=== PATIENT | female | born 1990 | race Caucasian/White ===

== ENCOUNTER 2019-09-24 06:08 | Emergency (ER) | payer SELFPAY ==
[2019-09-24 06:19] VITALS: BP 138/88; PULSE 84; RESP 16; TEMP 36.7; O2SAT 100; BMI 25.2
[2019-09-24 06:25] VITALS: BP 138/88; PULSE 86; RESP 18; O2SAT 99
--- NOTE | 2019-09-24 06:41 | ED_ITS ---
HPI - SOB/Dyspnea General: Chief Complaint: Shortness of Breath/Dyspnea Stated Complaint: sob Time Seen by Provider: 09/24/19 06:39 Review of Systems General: Reports: 10 or more systems reviewed and unremarkable except in HPI and below Resp: Reports: shortness of breath and productive cough PFSH ED PFSH: Statuses (acute, chronic, etc) shown below reflect problem list status as previously entered and may not be historically accurate Social History Smoking and tobacco status: current every day smoker Physical Exam Const: COMMON NORMALS: no apparent distress, average body habitus, oriented x3, healthy appearing, alert and well nourished Neck/C-Spine: COMMON NORMALS: no JVD Resp: COMMON NORMALS: normal respiratory effort, no retractions, no use of accessory muscles and clear to auscultation bilaterally AUSCULTATION: clear to auscultation bilaterally Cardio: COMMON NORMALS: no JVD, regular rate and regular rhythm RATE: regular rate RHYTHM: regular rhythm Extremity: COMMON NORMALS: normal to inspection Neuro: COMMON NORMALS: oriented x3 SENSORIUM/ORIENTATION: Yes alert Course Vital Signs: Vital signs: Vital Signs Temperature 98.1 F 09/24/19 06:19 Pulse Rate 86 09/24/19 06:25 Respiratory Rate 18 09/24/19 06:25 Blood Pressure 138/88 09/24/19 06:25 Pulse Oximetry 99 09/24/19 06:25 MDM - SOB/Dyspnea Lab Data: Labs: Lab Results 09/24/19 09/24/19 09/24/19 Range/Units 06:54 06:55 06:55 WBC 10.0 (4.0-10.0) 10^3/ uL RBC 4.91 (4.1-5.3) 10^6/u L Hgb 14.2 (11.5-15.3) g/dL Hct 42.4 (37.0-47.0) % MCV 86.4 (81-99) fL MCH 28.9 (28.0-34.0) pg MCHC 33.5 (30.0-36.0) g/dL RDW 12.5 (12.1-15.1) % Plt Count 161 (130-400) 10^3/c mm MPV 11.5 H (7.4-10.4) fL Neut % (Auto) 49.4 % Lymph % (Auto) 36.0 % [place] % (Auto) 8.0 % Eos % (Auto) 5.7 % Baso % (Auto) 0.6 % Neut # (Auto) 4.9 (1.8-7.7) 10^3/u L Lymph # (Auto) 3.6 (0.8-4.8) 10^3/u L [place] # (Auto) 0.8 (0.2-0.9) 10^3/u L Eos # (Auto) 0.6 (0.0-0.8) 10^3/u L Baso # (Auto) 0.1 (0.0-0.1) 10^3/u L Nucleated RBC % (a uto) 0 % Nucleated RBCs # 0.0 /100WBC Sodium 137 (136-145) mmol/L Potassium 4.0 (3.5-5.1) mmol/L Chloride 103 (98-107) mmol/L Carbon Dioxide 22 (22-29) mmol/L Anion Gap 16.0 (5-19) BUN 8 (6-20) mg/dL Creatinine 0.7 (0.5-0.9) mg/dL GFR Calculation 99.6 (90-130) mL/min Glucose 109 (74-109) mg/dL Calcium 9.4 (8.5-10.5) mg/dL Total Bilirubin 0.2 (0.15-1.2) mg/dL AST 25 (0-32) U/L ALT 28 (0-33) U/L Alkaline Phosphata se 61 (35-105) IU/L Total Protein 7.1 (6.6-8.7) g/dL Albumin 3.9 (3.5-5.2) g/dL Globulin 3.2 (1.3-4.6) g/dL Influenza Type A A g Negative (Negative) POC Influenza B Ag Negative (Negative) Imaging Data^: CXR: My impression: nad Coding Level of Care Code ED [employer] for [facility] Divya
--- NOTE | 2019-09-24 06:44 | XR_ITS ---
WS: [id number] Portable AP upright chest, 09/24/2019 Clinical Data: dyspnea/cough Comparison: PA and lateral chest, 03/29/2016. Findings: No nodules, masses or effusions are seen. The heart is normal. The pulmonary vascularity is not increased. No pneumonia or pneumothorax is seen. XR/XR chest 1V portable [id number] Impression: Negative chest.
[2019-09-24 06:59] LABS: Basophils # 0.1 10^3/uL (0.0-0.1); Basophils % 0.6 %; Eosinophils # 0.6 10^3/uL (0.0-0.8); Eosinophils % 5.7 %; Hematocrit 42.4 % (37.0-47.0); Hemoglobin 14.2 g/dL (11.5-15.3); Lymphocytes # 3.6 10^3/uL (0.8-4.8); Mean Corpuscular HGB Conc 33.5 g/dL (30.0-36.0); Mean Corpuscular Hemoglobin 28.9 pg (28.0-34.0); Mean Corpuscular Volume 86.4 fL (81-99); Mean Platelet Volume 11.5 fL (7.4-10.4); Monocytes # 0.8 10^3/uL (0.2-0.9); Neutrophils # 4.9 10^3/uL (1.8-7.7); Neutrophils % 49.4 %; Nucleated Red Blood Cells % 0 %; Platelet Count 161 10^3/cmm (130-400); Red Blood Count 4.91 10^6/uL (4.1-5.3); Red Cell Distribution Width 12.5 % (12.1-15.1)
[2019-09-24 07:16] LABS: Alanine Aminotransferase 28 U/L (0-33); Albumin Level 3.9 g/dL (3.5-5.2); Alkaline Phosphatase 61 IU/L (35-105); Aspartate Amino Transferase 25 U/L (0-32); Blood Urea Nitrogen 8 mg/dL (6-20); Calcium 9.4 mg/dL (8.5-10.5); Carbon Dioxide 22 mmol/L (22-29); Chloride 103 mmol/L (98-107); Globulin 3.2 g/dL (1.3-4.6); Glomerular Filtration Rate 99.6 mL/min (90-130); Glucose 109 mg/dL (74-109); Sodium 137 mmol/L (136-145); Total Bilirubin 0.2 mg/dL (0.15-1.2); Total Protein 7.1 g/dL (6.6-8.7)
[2019-09-24 07:19] LABS: Influenza A by IFA Negative (Negative); Influenza B by IFA Negative (Negative)
[2019-09-24] MEDS: sodium chloride 0.9% 1,000 ML 999 ML IV (07:36)
[2019-09-24 08:50] VITALS: BP 122/59; PULSE 75; RESP 20; O2SAT 99
== END 2019-09-24 08:53 | disposition home or self-care (01) ==
PROVIDERS: Emergency Provider Family Medicine; PCP Obstetrics & Gynecology
DX: R06.02 Shortness of breath (principal); F17.210 Nicotine dependence, cigarettes, uncomplicated
CPT/HCPCS: 71045; 80053; 85025; 87804; 96360; 99283; J7030

== ENCOUNTER 2019-11-16 22:26 | Emergency (ER) | payer SELFPAY ==
[2019-11-16 22:30] VITALS: BP 169/116; PULSE 103; RESP 18; TEMP 36.9; O2SAT 98; BMI 25.7
--- NOTE | 2019-11-16 22:36 | ED_ITS ---
Entered by Jane Gonsales, acting as scribe for Fabio Luther MD Nov 16, 2019 22:26 HPI - General Adult General: Chief complaint: General Medical Stated complaint: l breast leakage, blood, swelling, and pain Time Seen by Provider: 11/16/19 22:35 Source: patient Mode of arrival: ambulatory Limitations: no limitations History of Present Illness: HPI narrative: 29 yr old f came into the ED today. This started 2 weeks ago according to the pt. Pt says that she had discharge coming out of the left nipple once she squeezed the nipple there was yellow discharge coming out of the nipple, swelling. Last period was about 1 month ago. Pt states that she is unable to get by tubal ligation. Pt states she does not have a primary care physician. Onset (ago): week(s) (2 weeks of ongoing symptoms) Location: left (breast ) Severity: moderate Pain Consistency: constant Associated symptoms: Reports no associated symptoms; Deny chest pain, dyspnea, headache(s), nausea or vomiting Treatments prior to arrival: none Review of Systems Const: Denies: fever, chills, body aches or change in appetite Eyes: Denies: blurry vision or eye discomfort ENMT: Denies: throat pain or dental pain Card: Denies: chest pain Resp: Denies: shortness of breath GI: Denies: abdominal pain, nausea, vomiting or diarrhea : Denies: painful urination Musc: Denies: neck pain or back pain Skin/Breast: Reports: redness (mild redness with a small streak ), breast tenderness, breast pain, breast swelling and nipple discharge (yellow/ green discharge ) Neuro: Denies: headache Psych: Denies: depression Adam/Lymph: Denies: easy bruising All/Imm: Denies: hives PFSH ED PFSH: Social History Smoking and tobacco status: current every day smoker Physical Exam Const: COMMON NORMALS: no apparent distress, oriented x3 and healthy appearing HENMT: COMMON NORMALS: normocephalic and head/scalp atraumatic HEAD & SCALP: normocephalic and atraumatic Eye: COMMON NORMALS: PERRL and EOMs intact bilaterally PUPIL: Yes PERRL Neck/C-Spine: COMMON NORMALS: full ROM and supple Chest: COMMONS NORMALS: inspection of chest normal and palpation of chest normal OTHER: Slight erythema to left breast at this time. No abscess or mass palpated. Resp: COMMON NORMALS: normal respiratory effort, no retractions, no use of accessory muscles and clear to auscultation bilaterally AUSCULTATION: clear to auscultation bilaterally Cardio: COMMON NORMALS: regular rate, regular rhythm and no murmurs RATE: regular rate RHYTHM: regular rhythm GI: COMMON NORMALS: normal to inspection, nondistended, normoactive bowel sounds, soft to palpation, non-tender and no masses PALPATION: Yes soft Extremity: COMMON NORMALS: normal to inspection and full ROM Neuro: COMMON NORMALS: oriented x3, moves all extremities and no focal motor deficits Psych: COMMON NORMALS: mental status grossly normal, thought process normal and cooperative THOUGHT PROCESS: normal thought process Skin: COMMON NORMALS: no rashes or lesions noted and no wounds GENERAL SKIN EXAM: no rashes or lesions noted Course Vital Signs: Vital signs: Vital Signs Temperature 98.4 F 11/16/19 22:30 Pulse Rate 103 H 11/16/19 22:30 Respiratory Rate 18 11/16/19 22:30 Blood Pressure 169/116 11/16/19 22:30 Pulse Oximetry 98 11/16/19 22:30 MDM - General Adult MDM Narrative: Medical decision making narrative: Patient presents here with breast pain and nipple discharge. Patient is well-appearing here and has no signs of abscess. Patient may have a mild mastitis and will start on dicloxacillin along with pain meds. Patient is to follow-up with OB as well for close follow-up of her breast pain. Discharge Plan Discharge Patient Disposition: Home, Self-Care Condition: Stable Prescriptions: [place] 5-325 mg tablet 1 tab PO Q6H PRN (Reason: pain) Qty: 14 RF: 0 dicloxacillin 500 mg capsule 500 mg PO QID Qty: 28 RF: 0 No Action albuterol sulfate 90 mcg/actuation aero powdr breath act w/sensor 2 inh INHALATION Q4H PRN (Reason: shortness of breath or wheezing) Qty: 1 RF: 0 Zithromax Z-Isiah 250 mg tablet See Rx Instructions .ROUTE .COMPLEX Qty: 6 RF: 0 prednisone 10 mg tablets,dose pack See Rx Instructions .ROUTE .COMPLEX Qty: 21 RF: 0 Discharge Orders: Discharge Order (Routine); Ordered 11/16/19 Ordered By: Fabio Luther Discharge Diet: Advance as tolerated Discharge Activity: Resume usual activity Patient Instructions: Breast Pain Discharge Date/Time: 11/16/19 22:53 Coding Level of Care Code ED Serger for Chg Fwd The documentation recorded by the Dru carr Stephanie Lyn, accurately reflects the service I personally performed and the decisions made by Homa davis Korby, MD Nov 16, 2019 22:26
--- NOTE | 2019-11-16 22:46 | PC.NURSE ---
Patient had hardened area in left breast for two weeks with pain. Patient squeezed breast at home hoping to relieve pain, yellow discharge and blood from nipple emerged, and pain worsened. No visual signs of abscess or infection to area. Some swelling present and pain 10/10.
[2019-11-16] MEDS: HYDROcodone-acetaminophen 7.5-325 mg Tablet 1 TAB PO (22:52)
--- NOTE | 2019-11-18 10:06 | DCPLANNER ---
bakery manager had message to schedule a follow up appointment for patient with [facility]. bakery manager called [facility], spoke with Laura. bakery manager gave clinic patients information. bakery manager was told that patients information would be printed and reviewed, clinic will call child welfare caseworker with appointment information.
--- NOTE | 2019-12-02 11:29 | DCPLANNER ---
retail office manager called [facility] to confirm if a follow up appointment had been scheduled for patient. retail office manager spoke with Daniela, was told that clinic spoke with patient, and that patient did not want to set up an appointment at this time, due to not having insurance and did not want to have an appointment that she could not afford at this time. retail office manager was told that patient was offered the financial compliance officer for the hospital to fill out and turn back in, patient did come into clinic, and took the applications. Clinic is waiting for patient to turn in the financial compliance officer applications and see if she is approved for financial compliance officer, and if so to schedule an appointment.
== END 2019-11-16 22:53 | disposition home or self-care (01) ==
PROVIDERS: Emergency Provider Emergency Medicine
DX: N64.4 Mastodynia (principal); N64.52 Nipple discharge; F17.200 Nicotine dependence, unspecified, uncomplicated
CPT/HCPCS: 12345; 99281; 99283

== ENCOUNTER 2020-10-16 21:07 | Emergency (ER) | payer OTHER, SELFPAY ==
[2020-10-16 21:13] VITALS: BP 147/95; PULSE 103; RESP 22; TEMP 36.6; O2SAT 97; BMI 32.9
--- NOTE | 2020-10-16 21:19 | XR_ITS ---
WS: [id number] Exam: XR elbow LT min 3V* [id number] Date/Time of Exam: 10/16/2020 9:19 PM Reason For Exam: elbow pain, s/p fall No fracture or dislocation. No joint effusion. Unremarkable soft tissues. XR/XR elbow LT min 3V* [id number] IMPRESSION: 1. Negative left elbow.
--- NOTE | 2020-10-16 21:19 | XR_ITS ---
WS: [id number] Exam: XR wrist LT min 3V* [id number] Date/Time of Exam: 10/16/2020 9:19 PM Reason For Exam: fall, FOOSH injury There are no fractures, soft tissue swelling, or unusual calcifications. The wrist shows normal bony alignment. There is no irregularity of the bony architecture. XR/XR wrist LT min 3V* [id number] IMPRESSION: Negative left wrist.
--- NOTE | 2020-10-16 21:20 | ED_ITS ---
HPI - Extremity Problem General: Chief complaint: Extremity Injury, Upper Stated complaint: fall/left arm injury Time Seen by Provider: 10/16/20 21:19 Source: patient Mode of arrival: ambulatory Limitations: no limitations History of Present Illness: HPI Narrative: 30-year-old female patient presents to the emergency department with onset of left upper extremity pain status post fall. She reports slipped wet ground while getting out of her vehicle. She reports attempted to block her fall with her left arm extended. She is complaining of left wrist pain and left elbow pain. She has not had anything for pain. She denies other injuries. She is ambulatory. MD Complaint: extremity pain and extremity swelling Onset (ago): minute(s) (30) Pain Consistency: constant Location: left and upper extremity Quality: aching and dull Radiation: proximal and distal Relieving factors: rest Exacerbating factors: range of motion Associated symptoms: Reports no associated symptoms; Deny chest pain, fever(s) or rash Review of Systems General: Reports: 10 or more systems reviewed and unremarkable except in HPI and below Const: Denies: fever(s), chills or diaphoresis Eyes: Denies: blurry vision or eye redness ENMT: Denies: throat pain, dental pain or disequilibrium Card: Denies: chest pain, palpitations, irregular heart rhythm, lightheadedness or dyspnea on exertion Resp: Denies: dyspnea, productive cough, non-productive cough or wheezing GI: Denies: abdominal pain, nausea or vomiting : Denies: flank pain, difficulty voiding or dysuria Musc: Reports: joint pain and joint stiffness; Denies: neck pain or back pain Skin/Breast: Denies: rash or pruritus Neuro: Denies: headache(s), weakness in extremities or behavioral changes Psych: Denies: anxiety or depression Adam/Lymph: Denies: easy bruising PFSH ED PFSH: Social History Smoking and tobacco status: current every day smoker Female Reproductive History: Date of last menstrual period: 10/02/20 Physical Exam Const: COMMON NORMALS: no acute distress, patient oriented x3, healthy appearing, alert and well nourished EXAM LIMITATIONS: no altered mental status GENERAL APPEARANCE: cooperative, well kempt, well developed and well hydrated; not in distress and not anxious NUTRITIONAL APPEARANCE: obese ORIENTATION/CONSCIOUSNESS: Yes awake, Yes oriented to person, Yes oriented to place and Yes oriented to time HENMT: COMMON NORMALS: normocephalic, atraumatic, external ears normal, Normal external nose present, Normal nasal mucous membranes and turbinates present and moist oral mucous membranes HEAD & SCALP: normal to inspection, normocephalic and atraumatic FACE & SINUS: normal facial exam and face symmetric NOSE: Normal external nose present and Normal nasal mucous membranes and turbinates present EXTERNAL EAR: Yes external ears normal Eye: COMMON NORMALS: Equal, round and reactive pupils present and EOMs intact bilaterally GENERAL EYE: appearance normal, both eyes and all related structures PUPIL: Yes Equal, round and reactive pupils present Neck/C-Spine: COMMON NORMALS: full ROM and no lymphadenopathy GENERAL: Yes normal visual inspection and Yes trachea midline CERVICAL SPINE: Yes cervical ROM normal Lymph: LYMPHATIC: no lymphadenopathy noted Chest: COMMONS NORMALS: normal inspection of the chest Resp: COMMON NORMALS: normal respiratory effort and clear to auscultation bilaterally AUSCULTATION: clear to auscultation bilaterally Cardio: COMMON NORMALS: regular rhythm, S1 normal heart sound present and S2 normal heart sound present RHYTHM: regular rhythm HEART SOUNDS: S1 normal heart sound present and S2 normal heart sound present GI: COMMON NORMALS: Soft to palpation and non-tender INSPECTION: Yes normal to inspection PALPATION: Yes Soft to palpation : COMMON NORMALS: Yes no CVA tenderness BLADDER/KIDNEY EXAM: Yes no CVA tenderness Back/Pelvis: COMMON NORMALS: no CVA tenderness and thoracic and lumbar spine normal to inspection Extremity: COMMON NORMALS: normal to inspection, capillary refill normal, no clubbing, cyanosis or edema and no pedal edema GENERAL: Yes normal exam except as noted LEFT UPPER EXTREMITY: Yes shoulder joint Left shoulder joint: Yes inspection (normal), Yes palpation (normal) and Yes ROM (full), Yes elbow joint Left elbow: Yes inspection (normal), Yes palpation (pain lateral), Yes ROM (full pronation/supination appreciated) and Yes neurovascular exam (distally intact) and Yes wrist Left wrist: Yes inspection (normal), Yes palpation (pain ulnar side, pain directly on ulnar styloid) and Yes neurovascular exam (distally intact) Neuro: YUE COMA SCALE: document GCS findings [place] coma scale eye opening: Spontaneous Yue coma scale verbal response: Orientated Yue coma scale motor response: Obey commands [place] coma scale total score: 15 COMMON NORMALS: patient oriented x3 and no focal motor deficits SENSORIUM/ORIENTATION: Yes alert, Yes oriented to person, Yes oriented to place and Yes oriented to time SPEECH: speech normal GAIT: Yes Normal gait present MOTOR EXAM: 5/5 motor strength present throughout Psych: COMMON NORMALS: mental status grossly normal, Normal thought process present and cooperative APPEARANCE: Yes well kempt ACTIVITY/MOTOR BEHAVIOR: Yes appropriate eye contact THOUGHT PROCESS: Normal thought process present Skin: COMMON NORMALS: no rashes or lesions noted and turgor normal GENERAL SKIN EXAM: no rashes or lesions noted and turgor normal Course Vital Signs: Vital signs: Vital Signs Temperature 97.9 F 10/16/20 21:13 Pulse Rate 92 10/16/20 22:33 Respiratory Rate 18 10/16/20 22:32 Blood Pressure 142/87 10/16/20 22:33 Pulse Oximetry 98 10/16/20 22:33 MDM - Extremity (Nontraumatic) Imaging Data^: Other Xray: My impression: Negative acute findings of left wrist and left elbow x-ray series, radiology interpretation pending. Discharge Plan Discharge Patient Disposition: Home Clinical Impression: Sprain and strain of wrist Fall Qualifiers: Encounter type: initial encounter Qualified Code(s): W19.XXXA - Unspecified fall, initial encounter Arm pain Qualifiers: Laterality: left Qualified Code(s): M79.602 - Pain in left arm Condition: Stable Prescriptions: New IBU 600 mg tablet 600 mg PO TID PRN (Reason: pain) Qty: 20 RF: 0 No Action albuterol sulfate 90 mcg/actuation aero powdr breath act w/sensor 2 inh INHALATION Q4H PRN (Reason: shortness of breath or wheezing) Qty: 1 RF: 0 Zithromax Z-Isiah 250 mg tablet See Rx Instructions .ROUTE .COMPLEX Qty: 6 RF: 0 prednisone 10 mg tablets,dose pack See Rx Instructions .ROUTE .COMPLEX Qty: 21 RF: 0 [place] 5-325 mg tablet 1 tab PO Q6H PRN (Reason: pain) Qty: 14 RF: 0 dicloxacillin 500 mg capsule 500 mg PO QID Qty: 28 RF: 0 Discharge Orders: Discharge ED (Routine); Ordered 10/16/20 Ordered By: Steff Alba Discharge Diet: Usual diet Discharge Activity: Limit activity as instructed Patient Instructions: How to Use a Sling (GEN), Splint Care (ED), Opioid Safety, Sprains - Wrist Activity Restrictions/Additional Instructions: Follow-up with your primary provider in 4 to 5 days if not improved Velcro wrist splint has been provided, use as needed for pain Return to the emergency department if you develop concerning symptoms Prescription of ibuprofen has been provided, do not use [id number] ib uprofen, Advil, Aleve as duplication of therapy can occur Coding Level of Care Code ED Tube Trailer Filler for Radha Fwd Exam Comprehensive
[2020-10-16] MEDS: acetaminophen 500 mg Tablet 1000 MG PO (21:24)
[2020-10-16] MEDS: ibuprofen 600 mg Tablet PO (22:30)
[2020-10-16 22:31] VITALS: BP 142/87; PULSE 98; O2SAT 98
[2020-10-16 22:32] VITALS: BP 124/85; PULSE 89; RESP 18; O2SAT 98
[2020-10-16 22:33] VITALS: BP 142/87; PULSE 92; O2SAT 98
== END 2020-10-16 22:34 | disposition home or self-care (01) ==
PROVIDERS: Emergency Provider Nurse Practitioner Family
DX: S63.502A Unspecified sprain of left wrist, initial encounter (principal); S66.912A Strain of unspecified muscle, fascia and tendon at wrist and hand level, left hand, initial encounter; F17.210 Nicotine dependence, cigarettes, uncomplicated; W01.0XXA Fall on same level from slipping, tripping and stumbling without subsequent striking against object, initial encounter
CPT/HCPCS: 29125; 73080; 73110; 99283

== ENCOUNTER 2021-04-13 18:10 | Emergency (ER) | payer OTHER, SELFPAY ==
[2021-04-13 18:36] VITALS: BP 151/92; PULSE 93; RESP 18; TEMP 36.9; O2SAT 98
--- NOTE | 2021-04-13 19:17 | USCV_ITS ---
Tyra Patel Age: 30 Gender: F : 1990 Exam Date: 04/13/2021 19:51 Ordering Phys: Ramy Escudero Technologist: Cem Gabriel Exam Location: [facility] [place]_ Indication: RT LEG PAIN AND SWELLING PROCEDURES: Venous duplex imaging was performed in only the right lower extremity. The following venous structures were evaluated: common femoral vein, profunda vein, proximal portion of the greater saphenous vein, superficial femoral vein, and the popliteal vein. In addition, the posterior tibial and peroneal trunk were evaluated. FINDINGS: Normal 2-D Doppler and augmentation and compressibility throughout the lower extremity venous structures. Additional imaging through the proximal calf veins also reveals no thrombus. Limited evaluation of the greater saphenous vein is patent with no thrombus.. CONCLUSIONS No evidence of DVT in the above-mentioned identifiable veins. Dr Elias Abbasi MD LOCATED WITHIN [facility] (Electronically Signed) Final Date: 14 April 2021 18:40 S
--- NOTE | 2021-04-13 19:26 | ED_ITS ---
HPI - Extremity Problem General: Chief complaint: Extremity Problem,Nontraumatic Stated complaint: right leg pain and swelling Time Seen by Provider: 04/13/21 19:25 History of Present Illness: HPI Narrative: 30-year-old female comes in with some swelling and tenderness to the right lower extremity. Patient denies any recent , surgery, injury, or long sitting periods. Patient denies any previous history of blood clots. Patient does report her mother has a history of blood clots. Patient appears well. Patient appears no acute distress. Patient does smoke cigarette tobacco but denies any control. Review of Systems General: Reports: 10 or more systems reviewed and unremarkable except in HPI and below Musc: Reports: other (Right calf pain) PFS ED PFSH: Social History Smoking and tobacco status: current every day smoker Female Reproductive History: Date of last menstrual period: 10/02/20 Physical Exam Const: COMMON NORMALS: no acute distress and patient oriented x3 GENERAL APPEARANCE: cooperative HENMT: COMMON NORMALS: normocephalic and Normal external nose present HEAD & SCALP: normal to inspection and normocephalic NOSE: Normal external nose present MOUTH: Normal oral and palatal mucosa present Eye: GENERAL EYE: appearance normal, both eyes and all related structures Neck/C-Spine: COMMON NORMALS: full ROM Lymph: LYMPHATIC: no lymphadenopathy noted Chest: COMMONS NORMALS: normal inspection of the chest Resp: COMMON NORMALS: normal respiratory effort EFFORT & INSPECTION: Yes able to speak in complete sentences Cardio: COMMON NORMALS: regular rate and regular rhythm RATE: regular rate RHYTHM: regular rhythm GI: COMMON NORMALS: non-tender Back/Pelvis: COMMON NORMALS: thoracic and lumbar spine normal to inspection Extremity: NARRATIVE EXTREMITY EXAM: Mild calf tenderness on the right lower extremity, pulses are intact bilaterally to lower extremities, minimal to no swelling is noted to the right calf. Neuro: COMMON NORMALS: patient oriented x3 and moves all extremities Psych: COMMON NORMALS: mental status grossly normal and cooperative Skin: COMMON NORMALS: no rashes or lesions noted GENERAL SKIN EXAM: no rashes or lesions noted Course Vital Signs: Vital signs: Vital Signs Temperature 98.4 F 04/13/21 18:36 Pulse Rate 93 04/13/21 18:36 Respiratory Rate 18 04/13/21 18:36 Blood Pressure 151/92 04/13/21 18:36 Pulse Oximetry 98 04/13/21 19:41 MDM - Extremity (Nontraumatic) MDM Narrative: Medical decision making narrative: 30-year-old female comes in today with complaints of right lower calf pain. On exam patient has some tenderness in the right lower calf on palpation. Minimal to no swelling is noted. Pulses are intact distally. Palpation of the lumbar spine indicates no pain or tenderness. No tenderness is noted in the right buttocks. Patient has negative leg lift test. Differential diagnosis includes but not limited to DVT, muscle strain, sciatica. Ultrasound of the extremity was negative for DVT. CBC and CMP noted some elevation in hemoglobin hematocrit but otherwise normal. hCG serum test was negative. Reviewed exam with patient recommended treatment for musculoskeletal pain. Recommend follow-up with primary care for persistent pain and further evaluation. Lab Data: Labs: Lab Results 04/13/21 04/13/21 04/13/21 Range/Units 19:40 19:40 19:40 WBC 13.8 H (4.0-10.0) 10^3/ uL RBC 5.60 H (4.1-5.3) 10^6/u L Hgb 16.1 H (11.5-15.3) g/dL Hct 47.8 H (37.0-47.0) % MCV 85.4 (81-99) fl MCH 28.8 (28.0-34.0) pg MCHC 33.7 (30.0-36.0) g/dL RDW 12.9 (12.1-15.1) % Plt Count 200 (130-400) 10^3/c mm MPV 12.0 H (7.4-10.4) fL Neut % (Auto) 64.8 % Lymph % (Auto) 23.7 % [place] % (Auto) 8.2 % Eos % (Auto) 2.3 % Baso % (Auto) 0.7 % Neut # (Auto) 8.96 H (1.8-7.7) 10^3/u L Lymph # (Auto) 3.3 (0.8-4.8) 10^3/u L [place] # (Auto) 1.1 H (0.2-0.9) 10^3/u L Eos # (Auto) 0.3 (0.0-0.8) 10^3/u L Baso # (Auto) 0.1 (0.0-0.1) 10^3/u L Nucleated RBC % (a uto) 0 % Nucleated RBCs # 0.0 /100WBC Sodium 134 L (136-145) mmol/L Potassium 4.2 (3.5-5.1) mmol/L Chloride 100 (98-107) mmol/L Carbon Dioxide 24 (22-29) mmol/L Anion Gap 14.2 (5-19) BUN 12 (6-20) mg/dL Creatinine 0.5 (0.5-0.9) mg/dL GFR Calculation 145.9 H (90-130) mL/min Glucose 81 (65-115) mg/dL Calculated Osmolal ity 277 L (285-295) mOsm/k g Calcium 9.8 (8.5-10.5) mg/dL Total Bilirubin 0.2 (0.15-1.2) mg/dL AST 23 (0-32) U/L ALT 25 (0-33) U/L Alkaline Phosphata se 82 (35-105) IU/L Total Protein 7.3 (6.6-8.7) g/dL Albumin 4.4 (3.5-5.2) g/dL Globulin 2.9 (1.3-4.6) g/dL HCG, Qual Negative (Negative) Discharge Plan Discharge Patient Disposition: Home Clinical Impression: Acute pain of right lower extremity Condition: Stable Prescriptions: No Action albuterol sulfate 90 mcg/actuation aero powdr breath act w/sensor 2 inh INHALATION Q4H PRN (Reason: shortness of breath or wheezing) Qty: 1 RF: 0 Zithromax Z-Isiah 250 mg tablet See Rx Instructions .ROUTE .COMPLEX Qty: 6 RF: 0 prednisone 10 mg tablets,dose pack See Rx Instructions .ROUTE .COMPLEX Qty: 21 RF: 0 [place] 5-325 mg tablet 1 tab PO Q6H PRN (Reason: pain) Qty: 14 RF: 0 dicloxacillin 500 mg capsule 500 mg PO QID Qty: 28 RF: 0 IBU 600 mg tablet 600 mg PO TID PRN (Reason: pain) Qty: 20 RF: 0 Discharge Orders: Discharge ED (Routine); Ordered 04/13/21 Ordered By: Ramy Escudero Discharge Diet: Usual diet Discharge Activity: Increase activity as tolerated Patient Instructions: Musculoskeletal Pain (ED), Opioid Safety Activity Restrictions/Additional Instructions: Home and rest. Drink plenty of fluids. Activity as tolerated. Gentle stretching and range of motion exercises. Use Tylenol or ibuprofen for pain. Follow-up with primary care for further instructions and recommendations for further treatment and evaluation. Return to the ER for new concerns. Coding Level of Care Code ED Board Certified Orthodontist for Radha Fwd Exam Comprehensive
[2021-04-13 19:41] VITALS: O2SAT 98
[2021-04-13 19:49] LABS: Basophils # 0.1 10^3/uL (0.0-0.1); Basophils % 0.7 %; Eosinophils # 0.3 10^3/uL (0.0-0.8); Eosinophils % 2.3 %; Hematocrit 47.8 % (37.0-47.0); Hemoglobin 16.1 g/dL (11.5-15.3); Lymphocytes # 3.3 10^3/uL (0.8-4.8); Lymphocytes % 23.7 %; Mean Corpuscular HGB Conc 33.7 g/dL (30.0-36.0); Mean Corpuscular Hemoglobin 28.8 pg (28.0-34.0); Mean Corpuscular Volume 85.4 fl (81-99); Monocytes # 1.1 10^3/uL (0.2-0.9); Monocytes % 8.2 %; Neutrophils # 8.96 10^3/uL (1.8-7.7); Neutrophils % 64.8 %; Nucleated Red Blood Cells % 0 %; Platelet Count 200 10^3/cmm (130-400); Red Cell Distribution Width 12.9 % (12.1-15.1); White Blood Count 13.8 10^3/uL (4.0-10.0)
[2021-04-13 20:16] LABS: HCG, Serum Qual Negative (Negative)
[2021-04-13 20:30] LABS: Alanine Aminotransferase 25 U/L (0-33); Albumin Level 4.4 g/dL (3.5-5.2); Alkaline Phosphatase 82 IU/L (35-105); Anion Gap 14.2 (5-19); Aspartate Amino Transferase 23 U/L (0-32); Blood Urea Nitrogen 12 mg/dL (6-20); Calcium 9.8 mg/dL (8.5-10.5); Carbon Dioxide 24 mmol/L (22-29); Chloride 100 mmol/L (98-107); Globulin 2.9 g/dL (1.3-4.6); Glomerular Filtration Rate 145.9 mL/min (90-130); Glucose 81 mg/dL (65-115); Osmolality Calculated 277 mOsm/kg (285-295); Potassium 4.2 mmol/L (3.5-5.1); Sodium 134 mmol/L (136-145); Total Bilirubin 0.2 mg/dL (0.15-1.2); Total Protein 7.3 g/dL (6.6-8.7)
[2021-04-13 20:46] VITALS: BP 138/96; PULSE 80; RESP 16; O2SAT 98
== END 2021-04-13 20:46 | disposition home or self-care (01) ==
PROVIDERS: Emergency Provider Nurse Practitioner Family
DX: M79.604 Pain in right leg (principal); F17.210 Nicotine dependence, cigarettes, uncomplicated
CPT/HCPCS: 80053; 84703; 85025; 93971; 99282

== ENCOUNTER 2022-03-29 00:59 | Emergency (ER) | payer OTHER, SELFPAY ==
[2022-03-29 01:05] VITALS: BP 137/88; PULSE 93; RESP 23; TEMP 36.9; O2SAT 98; BMI 33.6
--- NOTE | 2022-03-29 01:30 | ECG_ITS ---
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 Measurements Intervals [place] Rate: 91 P: 68 AR: 117 QRS: 84 QRSD: 90 T: 46 QT: 327 QTc: 403 Interpretive Statements SINUS RHYTHM WITH SHORT AR INTERVAL Compared to ECG 03/29/2016 19:02:18 No significant changes Electronically Signed On 03-29-2022 14:22:46 CDT by Levon Clemons M.D. [email or web address] Communicationscleveland clinic foundationOptizen labs/store/NU/[id number] f
--- NOTE | 2022-03-29 01:30 | XRR_ITS ---
PROCEDURE INFORMATION: Exam: XR Chest Exam date and time: 03/29/2022 2:15 AM Age: 31 years old Clinical indication: Shortness of breath; Patient HX: C/O SOB. TECHNIQUE: Imaging protocol: Radiologic exam of the chest. Views: 1 view. COMPARISON: CR XR chest 1V portable [id number] 09/24/2019 6:51 AM FINDINGS: Lungs: No consolidation. Pleural spaces: Unremarkable. No pleural effusion. No pneumothorax. Heart/Mediastinum: No cardiomegaly. Bones/joints: No acute fracture. XR/XR chest 1V portable [id number] IMPRESSION: No acute findings.
--- NOTE | 2022-03-29 01:43 | PC.NURSE ---
BLOOD DRAWN VIA FLAT FOLDING MACHINE OPERATOR FROM RIGHT HAND PER PROTOCOL, TOLERATED WELL. LABS LABELED AND TAKEN TO LAB DEPT AT THIS TIME.
[2022-03-29 01:49] LABS: Basophils # 0.1 10^3/uL (0.0-0.1); Basophils % 0.5 %; Eosinophils # 0.5 10^3/uL (0.0-0.8); Eosinophils % 4.2 %; Hemoglobin 16.2 g/dL (11.5-15.3); Lymphocytes # 4.1 10^3/uL (0.8-4.8); Lymphocytes % 34.4 %; Mean Corpuscular HGB Conc 33.8 g/dL (30.0-36.0); Mean Corpuscular Hemoglobin 28.5 pg (28.0-34.0); Mean Corpuscular Volume 84.5 fl (81-99); Mean Platelet Volume 12.3 fL (7.4-10.4); Monocytes # 0.9 10^3/uL (0.2-0.9); Monocytes % 7.4 %; Neutrophils # 6.27 10^3/uL (1.8-7.7); Neutrophils % 53.2 %; Nucleated Red Blood Cells % 0 %; Platelet Count 198 10^3/cmm (130-400); Red Blood Count 5.68 10^6/uL (4.1-5.3); Red Cell Distribution Width 12.6 % (12.1-15.1); White Blood Count 11.8 10^3/uL (4.0-10.0)
[2022-03-29 02:19] LABS: Troponin(5th) Baseline 6 ng/L (0-10)
--- NOTE | 2022-03-29 02:24 | W.ED.SOB ---
HPI - SOB/Dyspnea General: Chief Complaint: Shortness of Breath/Dyspnea Stated Complaint: sob, body aches Time Seen by Provider: 03/29/22 01:30 Source: patient Mode of arrival: ambulatory Limitations: no limitations History of Present Illness: HPI Narrative: 31-year-old female who states that over the last 2 days she been having some shortness of breath along with body aches and vomiting. States the vomiting is improved but she still having body aches and dyspnea. She denies any fever denies any cough she has not had any known sick contacts but is concerned she may have COVID but denies fever patient is in no distress here pulse ox 98% on room air she able speak in full senses denies any chest pain. Associated symptoms: Deny abdominal pain, chest pain, nausea or vomiting Review of Systems Const: Reports: body aches Eyes: Denies: blurry vision or eye discomfort ENMT: Denies: throat pain or dental pain Card: Denies: chest pain Resp: Reports: dyspnea GI: Denies: abdominal pain, nausea, vomiting or diarrhea : Denies: dysuria Musc: Denies: neck pain or back pain Skin/Breast: Denies: rash Neuro: Denies: headache(s) Psych: Denies: depression Adam/Lymph: Denies: easy bruising All/Imm: Denies: urticaria PFSH ED PFSH: Medical History (Updated 03/29/22 @ 03:02 by Fabio Luther MD) No pertinent past medical history Social History Smoking and tobacco status: current every day smoker Female Reproductive History: Date of last menstrual period: 10/02/20 Physical Exam Const: COMMON NORMALS: no acute distress, patient oriented x3 and healthy appearing HENMT: COMMON NORMALS: normocephalic and atraumatic HEAD & SCALP: normocephalic and atraumatic Eye: COMMON NORMALS: Equal, round and reactive pupils present and EOMs intact bilaterally PUPIL: Yes Equal, round and reactive pupils present Neck/C-Spine: COMMON NORMALS: full ROM and supple Chest: COMMONS NORMALS: normal inspection of the chest and normal palpation of entire chest wall Resp: COMMON NORMALS: normal respiratory effort, No retractions, No use of accessory muscles and clear to auscultation bilaterally AUSCULTATION: clear to auscultation bilaterally Cardio: COMMON NORMALS: regular rate, regular rhythm and No murmurs present (Cardio) RATE: regular rate RHYTHM: regular rhythm GI: COMMON NORMALS: Normal to inspection, nondistended, normoactive bowel sounds present, Soft to palpation, non-tender and no masses PALPATION: Yes Soft to palpation Extremity: COMMON NORMALS: normal to inspection and full ROM Neuro: COMMON NORMALS: patient oriented x3, moves all extremities and no focal motor deficits Psych: COMMON NORMALS: mental status grossly normal, Normal thought process present and cooperative THOUGHT PROCESS: Normal thought process present Skin: COMMON NORMALS: no rashes or lesions noted and no wounds GENERAL SKIN EXAM: no rashes or lesions noted Course Vital Signs: Vital signs: Vital Signs Temperature 98.5 F 03/29/22 01:05 Pulse Rate 85 03/29/22 02:35 Respiratory Rate 16 03/29/22 02:35 Blood Pressure 124/79 03/29/22 02:35 Pulse Oximetry 97 03/29/22 02:35 Oxygen Delivery Me thod 03/29/22 02:35 MDM - SOB/Dyspnea Medical Decision Making Patient presents for shortness of breath she is well-appearing here troponin D-dimer blood works normal x-ray shows no signs of pneumonia she is in no distress here she is stable for discharge she is to follow-up with PCP and return if worsening. Lab Data : 03/29/22 01:40 Labs/Radiology: Laboratory Results WBC 11.8 10^3/uL (4.0-10.0) H 03/29/22 01:40 RBC 5.68 10^6/uL (4.1-5.3) H 03/29/22 01:40 Hgb 16.2 g/dL (11.5-15.3) H 03/29/22 01:40 Hct 48.0 % (37.0-47.0) H 03/29/22 01:40 MCV 84.5 fl (81-99) 03/29/22 01:40 MCH 28.5 pg (28.0-34.0) 03/29/22 01:40 MCHC 33.8 g/dL (30.0-36.0) 03/29/22 01:40 RDW 12.6 % (12.1-15.1) 03/29/22 01:40 Plt Count 198 10^3/cmm (130-400) 03/29/22 01:40 MPV 12.3 fL (7.4-10.4) H 03/29/22 01:40 Neut % (Auto) 53.2 % 03/29/22 01:40 Lymph % (Auto) 34.4 % 03/29/22 01:40 [place] % (Auto) 7.4 % 03/29/22 01:40 Eos % (Auto) 4.2 % 03/29/22 01:40 Baso % (Auto) 0.5 % 03/29/22 01:40 Neut # (Auto) 6.27 10^3/uL (1.8-7.7) 03/29/22 01:40 Lymph # (Auto) 4.1 10^3/uL (0.8-4.8) 03/29/22 01:40 [place] # (Auto) 0.9 10^3/uL (0.2-0.9) 03/29/22 01:40 Eos # (Auto) 0.5 10^3/uL (0.0-0.8) 03/29/22 01:40 Baso # (Auto) 0.1 10^3/uL (0.0-0.1) 03/29/22 01:40 Nucleated RBC % (auto) 0 % 03/29/22 01:40 Nucleated RBCs # 0.0 /100WBC 03/29/22 01:40 D-Dimer 0.40 ug/mIFEU (0-0.59) 03/29/22 01:40 Troponin T Baseline 6 ng/L (0-10) 03/29/22 01:40 NT-Pro-B Natriuret Pep 79 pg/mL (0-125) 03/29/22 01:40 SARS-CoV-2 Ag (Rapid) Negative (Negative) 03/29/22 02:28 Discharge Plan Discharge Patient Disposition: Home Clinical Impression: Shortness of breath Condition: Stable Prescriptions: No Action albuterol sulfate 90 mcg/actuation aero powdr breath act w/sensor 2 inh INHALATION Q4H PRN (Reason: shortness of breath or wheezing) Qty: 1 0RF Zithromax Z-Isiah 250 mg tablet See Rx Instructions .ROUTE .COMPLEX Qty: 6 0RF Rx Instructions: take 500 mg today (day 1), then 250 mg for 4 days (days 2-5) prednisone 10 mg tablets,dose pack See Rx Instructions .ROUTE .COMPLEX Qty: 21 0RF Rx Instructions: orally per package directions [place] 5-325 mg tablet 1 tab PO Q6H PRN (Reason: pain) Qty: 14 0RF dicloxacillin 500 mg capsule 500 mg PO QID Qty: 28 0RF IBU 600 mg tablet 600 mg PO TID PRN (Reason: pain) Qty: 20 0RF Rx Instructions: take 1 PO TID PRN pain with food Discharge Orders: Discharge ED (Routine); Ordered 03/29/22 Ordered By: Fabio Luther Discharge Diet: Advance as tolerated Discharge Activity: Resume usual activity Patient Instructions: Dyspnea (ED) Coding Level of Care Code ED Photographic Equipment Inspector for Radha Fwharpreet Exam Comprehensive
[2022-03-29 02:27] LABS: NT Pro B Type Natriuretic Pept 79 pg/mL (0-125)
[2022-03-29 02:35] VITALS: BP 124/79; PULSE 85; RESP 16; O2SAT 97
[2022-03-29 02:57] LABS: SARS Covid-2 Antigen Negative (Negative)
== END 2022-03-29 03:27 | disposition home or self-care (01) ==
PROVIDERS: Emergency Provider Emergency Medicine
DX: R06.02 Shortness of breath (principal); F17.210 Nicotine dependence, cigarettes, uncomplicated; Z20.822 Contact with and (suspected) exposure to COVID-19
CPT/HCPCS: 71045; 83880; 84484; 85025; 85378; 87426; 93005; 99285

== ENCOUNTER 2022-08-02 23:42 | Observation (INO) | payer OTHER, SELFPAY ==
[2022-08-02 23:47] VITALS: BP 146/91; PULSE 87; RESP 20; TEMP 36.5; O2SAT 99; BMI 34.3
[2022-08-03] VITALS (9 sets, daily range): BP systolic 104–134; BP diastolic 64–87; PULSE 68–89; RESP 14–20; TEMP 36.4–36.8; O2SAT 96–99; BMI 33.8
--- NOTE | 2022-08-03 00:09 | CTR_ITS ---
PROCEDURE INFORMATION: Exam: CT Head Without Contrast Exam date and time: 08/03/2022 12:21 AM Age: 32 years old Clinical indication: Stroke-like symptoms; Lt upper extremity and lt lower extremity weakness; Additional info: CVA TECHNIQUE: Imaging protocol: Computed tomography of the head without contrast. Radiation optimization: All CT scans at this facility use at least one of these dose optimization techniques: automated exposure control; mA and/or kV adjustment per patient size (includes targeted exams where dose is matched to clinical indication); or iterative reconstruction. Other technique: STROKE PROTOCOL was implemented. COMPARISON: CT head wo con* [id number] 03/29/2016 10:13 PM RADIATION DOSE METRICS: Total DLP (mGy-cm): 1198.88 FINDINGS: Brain: Normal. No hemorrhage. Unremarkable white matter. No mass effect. Cerebral ventricles: No ventriculomegaly. Paranasal sinuses: There is opacification of ethmoid air cells more on the right than on the left in keeping with ethmoid sinusitis. Mastoid air cells: Visualized mastoid air cells are well aerated. Bones/joints: Unremarkable. No acute fracture. Soft tissues: Unremarkable. CT/CT head wo con* [id number] IMPRESSION: 1. No acute intracranial finding. 2. Ethmoid sinus disease. ASSESSMENT: ASPECTS ([place] Stroke Program Early CT Score) is 10.
--- NOTE | 2022-08-03 00:09 | XRR_ITS ---
PROCEDURE INFORMATION: Exam: XR Chest Exam date and time: 08/03/2022 12:16 AM Age: 32 years old Clinical indication: Chest pressure; Patient HX: C/O chest pain. Poss CVA. ; Additional info: Cp TECHNIQUE: Imaging protocol: Radiologic exam of the chest. Views: 1 view. COMPARISON: CR XR chest 1V portable [id number] 03/29/2022 2:15 AM FINDINGS: Lungs: Unremarkable. No consolidation. Pleural spaces: Unremarkable. No pleural effusion. No pneumothorax. Heart/Mediastinum: Unremarkable. No cardiomegaly. Bones/joints: Unremarkable. XR/XR chest 1V portable [id number] IMPRESSION: No acute findings.
--- NOTE | 2022-08-03 00:10 | ECG_ITS ---
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 Measurements Intervals [place] Rate: 86 P: 52 [place]: 120 QRS: 78 QRSD: 88 T: 34 QT: 340 QTc: 409 Interpretive Statements SINUS RHYTHM Compared to ECG 03/29/2022 01:13:42 Short [place] interval no longer present Electronically Signed On 08-03-2022 13:10:51 SQL REPORT DEVELOPER by Laly Mills M.D. [email or web address].[email or web address] Expresssharkey issaquena community hospitalinWebo Technologiesst. elizabeth hospitalKröhnert Infotecs/store/NU/[id number]/[id number] f
--- NOTE | 2022-08-03 00:10 | W.ED.NEUROSD ---
HPI - Neuro Symptoms/Deficit General: Chief Complaint: Neuro Symptoms/Deficit Stated Complaint: left side numbness Time Seen by Provider: 08/03/22 00:03 Source: patient Mode of arrival: ambulatory Limitations: no limitations History of Present Illness: 32-year-old female states she went to bed last night at 930 she states she woke up roughly 30 minutes ago with left-sided weakness and numbness. She states that she feels like some very hard time moving that side and has severe numbness she states she has numbness to her face as well no facial droop no slurred speech patient denies any worsening proving factors she states she also woke up with a mild headache. She has had some chest pain. Associated symptoms: Reports headache(s); Deny chest pain, nausea or vomiting Review of Systems Const: Denies: fever(s), chills, body aches or change in appetite Eyes: Denies: blurry vision or eye discomfort ENMT: Denies: throat pain or dental pain Card: Denies: chest pain Resp: Denies: dyspnea GI: Denies: abdominal pain, nausea, vomiting or diarrhea : Denies: dysuria Musc: Denies: neck pain or back pain Skin/Breast: Denies: rash Neuro: Reports: headache(s), numbness in extremities and weakness in extremities Psych: Denies: depression Adam/Lymph: Denies: easy bruising All/Imm: Denies: urticaria PFSH ED PFSH: Medical History (Updated 08/03/22 @ 01:43 by Fabio Luther MD) No pertinent past medical history Social History Smoking and tobacco status: current every day smoker Female Reproductive History: Date of last menstrual period: 10/02/20 NIH stroke score NIHSS: Level Of Consciousness - 1a: 0 Level Of Consciousness Questions - 1b: Both Correct Level Of Consciousness Commands - 1c: Both Correct Best Gaze - 2: Normal Visual Harris - 3: No Visual Loss Facial Palsy - 4: Normal Motor Arm Right - 5: No Drift Motor Arm Left - 5: Drift Motor Leg Right - 6: No Drift Motor Leg Left - 6: Drift Limb Ataxia - 7: Absent Sensory - 8: Mild To Moderate Loss Best Language - 9: No Aphasia Dysarthia - 10: Normal Extinction And Inattention - 11: 0 Score: Total Score: 3 Physical Exam Const: COMMON NORMALS: no acute distress, patient oriented x3 and healthy appearing HENMT: COMMON NORMALS: normocephalic and atraumatic HEAD & SCALP: normocephalic and atraumatic Eye: COMMON NORMALS: Equal, round and reactive pupils present and EOMs intact bilaterally PUPIL: Yes Equal, round and reactive pupils present Neck/C-Spine: COMMON NORMALS: full ROM and supple Chest: COMMONS NORMALS: normal inspection of the chest and normal palpation of entire chest wall Resp: COMMON NORMALS: normal respiratory effort, No retractions, No use of accessory muscles and clear to auscultation bilaterally AUSCULTATION: clear to auscultation bilaterally Cardio: COMMON NORMALS: regular rate, regular rhythm and No murmurs present (Cardio) RATE: regular rate RHYTHM: regular rhythm GI: COMMON NORMALS: Normal to inspection, nondistended, normoactive bowel sounds present, Soft to palpation, non-tender and no masses PALPATION: Yes Soft to palpation Extremity: COMMON NORMALS: normal to inspection and full ROM Neuro: COMMON NORMALS: patient oriented x3 OTHER: left sided weakness and numbness Psych: COMMON NORMALS: mental status grossly normal, Normal thought process present and cooperative THOUGHT PROCESS: Normal thought process present Skin: COMMON NORMALS: no rashes or lesions noted and no wounds GENERAL SKIN EXAM: no rashes or lesions noted Course Vital Signs: Vital signs: Vital Signs Temperature 97.7 F 08/02/22 23:47 Pulse Rate 77 08/03/22 01:26 Respiratory Rate 20 H 08/03/22 01:26 Blood Pressure 134/87 08/03/22 01:26 Pulse Oximetry 97 08/03/22 01:26 Oxygen Delivery Me thod 08/03/22 01:26 MDM - Neuro Symptoms/Deficit Medical Decision Making Patient presents here with left-sided weakness along with some paresthesias exam is been atypical she has been able to walk but then states that she has a hard time moving her left leg she does have a mild headache could be a migraine or I did have her evaluated by neurology with [facility] who did not believe she is a tPA candidate did recommend admission for MRI patient has been stable down here. Lab Data 08/03/22 00:05 08/03/22 00:05 Radiology Impressions Chest X-Ray 08/03/22 00:09 IMPRESSION: No acute findings. Head CT 08/03/22 00:09 IMPRESSION: 1. No acute intracranial finding. 2. Ethmoid sinus disease. ASSESSMENT: ASPECTS ([place] Stroke Program Early CT Score) is 10. Laboratory Results WBC 12.5 10^3/uL (4.0-10.0) H 08/03/22 00:05 RBC 5.49 10^6/uL (4.1-5.3) H 08/03/22 00:05 Hgb 15.7 g/dL (11.5-15.3) H 08/03/22 00:05 Hct 46.9 % (37.0-47.0) 08/03/22 00:05 MCV 85.4 fl (81-99) 08/03/22 00:05 MCH 28.6 pg (28.0-34.0) 08/03/22 00:05 MCHC 33.5 g/dL (30.0-36.0) 08/03/22 00:05 RDW 12.3 % (12.1-15.1) 08/03/22 00:05 Plt Count 229 10^3/cmm (130-400) 08/03/22 00:05 MPV 11.9 fL (7.4-10.4) H 08/03/22 00:05 Neut % (Auto) 55.3 % 08/03/22 00:05 Lymph % (Auto) 32.6 % 08/03/22 00:05 [place] % (Auto) 8.1 % 08/03/22 00:05 Eos % (Auto) 3.0 % 08/03/22 00:05 Baso % (Auto) 0.6 % 08/03/22 00:05 Neut # (Auto) 6.91 10^3/uL (1.8-7.7) 08/03/22 00:05 Lymph # (Auto) 4.1 10^3/uL (0.8-4.8) 08/03/22 00:05 [place] # (Auto) 1.0 10^3/uL (0.2-0.9) H 08/03/22 00:05 Eos # (Auto) 0.4 10^3/uL (0.0-0.8) 08/03/22 00:05 Baso # (Auto) 0.1 10^3/uL (0.0-0.1) 08/03/22 00:05 Nucleated RBC % (auto) 0 % 08/03/22 00:05 Nucleated RBCs # 0.0 /100WBC 08/03/22 00:05 Sodium 136 mmol/L (136-145) 08/03/22 00:05 Potassium 3.9 mmol/L (3.5-5.1) 08/03/22 00:05 Chloride 104 mmol/L (98-107) 08/03/22 00:05 Carbon Dioxide 21 mmol/L (22-29) L 08/03/22 00:05 Anion Gap 14.9 (5-19) 08/03/22 00:05 BUN 10 mg/dL (6-20) 08/03/22 00:05 Creatinine 0.6 mg/dL (0.5-0.9) 08/03/22 00:05 GFR Calculation 116.6 mL/min (90-130) 08/03/22 00:05 Glucose 96 mg/dL (65-115) 08/03/22 00:05 POC Glucose 83 mg/dL (70-110) 08/03/22 00:13 Calculated Osmolality 281 mOsm/kg (285-295) L 08/03/22 00:05 Calcium 9.3 mg/dL (8.5-10.5) 08/03/22 00:05 Total Bilirubin 0.2 mg/dL (0.15-1.2) 08/03/22 00:05 AST 22 U/L (0-32) 08/03/22 00:05 ALT 25 U/L (0-33) 08/03/22 00:05 Alkaline Phosphatase 75 U/L (35-105) 08/03/22 00:05 Troponin T Baseline 6 ng/L (0-10) 08/03/22 00:05 Total Protein 7.6 g/dL (6.6-8.7) 08/03/22 00:05 Albumin 4.1 g/dL (3.5-5.2) 08/03/22 00:05 Globulin 3.5 g/dL (1.3-4.6) 08/03/22 00:05 HCG, Qual Negative (Negative) 08/03/22 00:05 EKG Data EKG 1: I personally reviewed and interpreted this EKG as follows: EKG interpretation date: 08/02/22 EKG interpretation time: 23:56 Interpretation: nsr hr [address] or t wave abnormalities qrs 88 qtc 384 Discharge Plan Discharge Patient Disposition: Admitted As Inpatient Admit Provider: Shakira Carlson Clinical Impression: Left-sided weakness, Paresthesia Condition: Stable Coding Level of Care Code ED Dynamo Tender for Chg Fwd Exam Comprehensive
[2022-08-03 00:14] LABS: Basophils # 0.1 10^3/uL (0.0-0.1); Basophils % 0.6 %; Eosinophils # 0.4 10^3/uL (0.0-0.8); Hematocrit 46.9 % (37.0-47.0); Hemoglobin 15.7 g/dL (11.5-15.3); Lymphocytes # 4.1 10^3/uL (0.8-4.8); Lymphocytes % 32.6 %; Mean Corpuscular HGB Conc 33.5 g/dL (30.0-36.0); Mean Corpuscular Hemoglobin 28.6 pg (28.0-34.0); Mean Corpuscular Volume 85.4 fl (81-99); Mean Platelet Volume 11.9 fL (7.4-10.4); Monocytes % 8.1 %; Neutrophils # 6.91 10^3/uL (1.8-7.7); Neutrophils % 55.3 %; Nucleated Red Blood Cells % 0 %; Platelet Count 229 10^3/cmm (130-400); Red Blood Count 5.49 10^6/uL (4.1-5.3); Red Cell Distribution Width 12.3 % (12.1-15.1); White Blood Count 12.5 10^3/uL (4.0-10.0)
[2022-08-03 00:18] LABS: Glucose Point of Care 83 mg/dL (70-110)
[2022-08-03 00:30] LABS: HCG, Serum Qual Negative (Negative); Troponin(5th) Baseline 6 ng/L (0-10)
[2022-08-03 00:31] LABS: Alanine Aminotransferase 25 U/L (0-33); Albumin Level 4.1 g/dL (3.5-5.2); Alkaline Phosphatase 75 U/L (35-105); Anion Gap 14.9 (5-19); Aspartate Amino Transferase 22 U/L (0-32); Blood Urea Nitrogen 10 mg/dL (6-20); Calcium 9.3 mg/dL (8.5-10.5); Carbon Dioxide 21 mmol/L (22-29); Chloride 104 mmol/L (98-107); Globulin 3.5 g/dL (1.3-4.6); Glomerular Filtration Rate 116.6 mL/min (90-130); Glucose 96 mg/dL (65-115); Osmolality Calculated 281 mOsm/kg (285-295); Potassium 3.9 mmol/L (3.5-5.1); Sodium 136 mmol/L (136-145); Total Bilirubin 0.2 mg/dL (0.15-1.2); Total Protein 7.6 g/dL (6.6-8.7)
[2022-08-03] MEDS: ketorolac 30 mg/mL INJ 15 MG IVP (01:08)
[2022-08-03] MEDS: promethazine 25 mg/mL SDV 1 mL IM (01:08)
[2022-08-03] MEDS: sodium chloride 0.9% 1,000 ML 999 ML IV (01:09)
[2022-08-03 01:54] LABS: Add Urine Microscopic? NO; Charge for UA Resulting for Rev
--- NOTE | 2022-08-03 02:02 | P.HP_ITS ---
Providers/Chief Complaint Admitting Physician: Sahkira Carlson MD Chief Complaint: left side numbness History of Present Illness Tyra Patel is a 32 year old female with no significant past medical history presented to the ER today with left-sided weakness and numbness. She says she had hard time moving her left side and has had severe numbness. No facial droop, no slurred speech. No other worsening factors. Nothing really made it better. She did have a mild headache when she woke up. Denies chest pain, nausea, vomiting, abdominal pain, diarrhea. Denies blurry vision. Denies a history of anxiety or depression. She does not have a history of headaches. She says she is unsure what happened. At this time when seen, she complains of mild weakness in left upper extremity but no longer has heaviness in tongue. ED course: Blood pressure 134/87, respiratory 20, pulse 77, temperature 97.7, saturating 97% on room air. Code stroke called. NIH score 3. Patient complained of left-sided weakness numbness but was able to walk. She had a mild headache as well. ER physician suspected complex migraine. She was evaluated by [facility] neurology who did not believe she was a tPA candidate. CT head negative for acute finding. Patient recommended to be admitted for MRI brain. Medications/Allergies Home Medications Medication Instructions Recorded Confirmed Last Taken Type albuterol sulfate 90 mcg/actuation 2 inh inhalation Q4H PRN shortness 09/24/19 Unknown Rx breath activated powder of breath or wheezing #1 ea inhaler,sensor azithromycin 250 mg tablet See Rx Instructions PO .COMPLEX #6 09/24/19 Unknown Rx (Zithromax Z-Isiah) tabs prednisone 10 mg tablets in a dose See Rx Instructions PO .COMPLEX 09/24/19 Unk nown Rx pack #21 ea dicloxacillin 500 mg capsule 500 mg PO QID #28 caps 11/16/19 Unknown Rx hydrocodone 5 mg-acetaminophen 325 1 tab PO Q6H PRN pain #14 tabs 11/16/19 Unknown Rx mg tablet (Otis) ibuprofen 600 mg tablet (IBU) 600 mg PO TID PRN pain #20 tabs 10/16/20 Unknown Rx Allergies Allergy/AdvReac Type Severity Reaction Status Date / [facility] Allergy ADR-Swelling Verified 11/16/19 22:44 of the Eye PFS Acute PFSH: Medical History (Updated 08/03/22 @ 03:25 by Shakira Carlson MD) No pertinent past medical history Social History Smoking and tobacco status: current every day smoker Female Reproductive History: Date of last menstrual period: 10/02/20 Vitals/I&O/Wt Last Vital Signs Temp 97.7 F 08/02/22 23:47 Pulse 77 08/03/22 01:26 Resp 20 H 08/03/22 01:26 BP 134/87 08/03/22 01:26 Pulse Ox 97 08/03/22 01:26 O2 Del Method 08/03/22 01:26 Weight last 48 hrs Weight 87.906 kg Weight 87.906 kg Physical Exam Narrative: General: Alert oriented x3, patient seen laying in bed. HEENT: Normocephalic, atraumatic, EOMI, breathing normally Cardio: Regular rate rhythm, normal S1-S2, Respiratory: Good bilateral air entry, no wheezes no rhonchi appreciated GI: Abdomen soft, nontender, nondistended, bowel sounds + Behavior: Appropriate and cooperative Extremities: Pulses 2+, no edema, no cyanosis Neuro: Cranial nerves II to XII intact. Strength 5 out of 5 right upper and lower extremity, 3/5 upper left extremity, 4/5 left lower extremity. Sensation 5 out of 5 bilateral upper and lower extremity. No facial droop. Igyc-vx-rcbb normal. No dysdiadochokinesia. Peripheral vision intact. No other gross deficits. Data 08/03/22 00:05 08/03/22 00:05 A&P Assessment and plan (1) Left-sided weakness: (2) Paresthesia: (3) No pertinent past medical history: (4) Hypertension: Plan #Left-sided weakness and numbness #Headache #Leukocytosis #Hypertension ? Not a tPA candidate. Able to walk. Neuro exam normal. Evaluated by [facility] Neurology TeleStroke Service. Pt's symptoms are waxing and waning. Pt also states that even if she was a candidate, she would not want tpa. She would like to decline even if its warranted. ? Continue to monitor vital signs ? Continue to monitor patient in the hospital ? Check MRI brain ? Consider echo - Check lipid panel, hemoglobin A1C - Check carotid US ? Placed on telemetry ? Tylenol for headache ? Neurochecks every 4 hours - Leukocytosis most likely secondary to stress response - Check procalcitonin - Reports being on lisinopril 10 daily at home for high blood pressure. - Check Head and neck CTA - Check urine drug screen Full code DVT prophylaxis: SCDs. Attestations Medical Necessity Statement*: Observation admission for left-sided weakness and numbness. Coding Level of Care Code Acute [place] Worker for Radha Stokes Diagnoses Left-sided weakness R53.1 Paresthesia R20.2 No pertinent past medical history Z78.9 Hypertension I10
[2022-08-03 02:05] LABS: Bilirubin Urine Neg (Negative); Blood Urine Neg (Negative); Glucose Urine UA Norm (Normal); Ketones Urine Negative (Negative); Leukocyte Esterase Urine Negative (Negative); Nitrate Urine Negative (Negative); Protein Urine Neg (Negative); Specific Gravity, Urine 1.015 (1.005-1.030); Urine Appearance Clear (CLEAR); Urine Color Colorless (Yellow); Urobilinogen Urine Norm (Negative); pH Urine 7 (5-7)
--- NOTE | 2022-08-03 02:08 | MR_ITS ---
WS: [id number] MRI BRAIN WITHOUT CONTRAST HISTORY: r/o stroke COMPARISON: CT head 08/03/2022 TECHNIQUE: Diffusion imaging, multiplanar T1, T2 and FLAIR imaging obtained. No evidence for acute infarct or hemorrhage. Chou-white matter differentiation is normal. No remote or acute infarcts are volume loss. Ventricles and extra-axial spaces are normal. No inferior displacement of cerebellar tonsils. The sella turcica and pituitary gland are unremarkabl e. Dural venous sinuses and [place] demonstrate no abnormality on this unenhanced studies. Paranasal sinuses: Mild diffuse mucoperiosteal thickening throughout the sinus cavities, greatest in the ethmoid air cells. No air-fluid levels. Mastoid air cells: Normal. Calvarium and scalp: Intact. MR/MR head wo con* [id number] IMPRESSION: 1. Normal diffusion sequence. No evidence for an acute infarct. 2. No hemorrhage or edema. 3. Mild mucoperiosteal sinus disease.
--- NOTE | 2022-08-03 02:10 | ECG_ITS ---
[facility] Test Date: 2022-08-03 Pat Name: Tyra Patel Department: Room: 279 Gender: Female Plan Rep: : 1990 Requested By: Fabio Luther Order Number: [id number] Sharon MD: Laly Mills M.D. Measurements Intervals [place] Rate: 69 P: 51 NC: 136 QRS: 72 QRSD: 93 T: 29 QT: 386 QTc: 415 Interpretive Statements SINUS RHYTHM Compared to ECG 08/02/2022 23:56:29 No significant changes Electronically Signed On 08-03-2022 13:14:17 ENDOSCOPY NURSE by Laly Mills M.D. [id number]
--- NOTE | 2022-08-03 02:13 | USCV_ITS ---
Tyra Patel Age: 32 Gender: F : 1990 Exam Date: 08/03/2022 02:43 Ordering Phys: Shakira Carlson MD Technologist: SABI [place] [facility] [place]: LEFT hemiparesis x 4 hrs. LEFT facial numbness but no LEFT facial droop. chest pain. Ataxia. Current daily smoker. Risk Factors: Current daily smoker. Previous Vascular Surgery: None Right Brachial BP: / Left Brachial BP: / Right Left Velocity (cm/s) Spectral Plaque Velocity (cm/s) Spectral Plaque Syst/Diast Broadening Syst/Diast Broadening 126.80/17.60 None None Prox CCA 124.30/ 21.80 None None 98.10/ 22.10 None None Mid CCA 116.50/ 26.40 None None 82.70/ 20.90 None None Distal CCA 108.80/ 23.30 None None 68.40/ 27.20 Min Homo Prox ICA 101.40/ 35.30 Min Homo 78.50/ 34.20 None None Mid ICA 94.80 / 32.00 None None 76.90/ 28.00 None None Distal ICA 93.70 / 37.50 None None 95.90 None None ECA 108.10 None None 0.62 ICA/CCA 0.82 Antegrade Vertebral Antegrade 44.30/ 10.90 cm/s 52.80/ 14.00 cm/s Tri Subclavian Tri 129.0 144.5 0 0 FINDINGS Comparison: none available. Waveforms are normal. No significant amount of calcified plaque or intimal thickening identified. No significant elevation of systolic or diastolic velocities. Antegrade vertebral arteries. CONCLUSIONS Normal carotid doppler ultrasound. Dr. Lisa Loaiza DO (Electronically Signed) Final Date: 03 August 2022 07:18 S
[2022-08-03 02:54] LABS: Procalcitonin 0.02 ng/mL (0-0.5); Thyroid Stimulating Hormone 2.66 uIU/mL (0.27-4.20)
[2022-08-03 02:56] LABS: Chol HDL Ratio 3.58 mg/dL (0.0-4.40); Cholesterol 172 mg/dL (0-200); Estmated Average Glucose 100; HDL Cholesterol 48 mg/dL (60-100); Hemoglobin A1C 5.1 % (4.0-6.0); LDL Cholesterol Calculated 106 mg/dL (50-129); LDL HDL Ratio 2.21 RATIO (0.00-3.22); Triglycerides 88 mg/dL (0-150)
--- NOTE | 2022-08-03 03:19 | CTR_ITS ---
PROCEDURE INFORMATION: Exam: CTA Head With Contrast, Arteriography Exam date and time: 08/03/2022 3:33 AM Age: 32 years old Clinical indication: Numbness and weakness; Patient HX: Sudden onset of left upper and lower ext weakness/numbness this a. M. ; Additional info: Left sided weakness/numbness TECHNIQUE: Imaging protocol: Computed tomographic angiography of the head with contrast. Exam focused on the arteries. 3D rendering (Not supervised by radiologist): MIP and/or 3D reconstructed images were created by the technologist. Radiation optimization: All CT scans at this facility use at least one of these dose optimization techniques: automated exposure control; mA and/or kV adjustment per patient size (includes targeted exams where dose is matched to clinical indication); or iterative reconstruction. Contrast material: OMNI 350; Contrast volume: 88 ml; Contrast route: INTRAVENOUS (IV); COMPARISON: CT head wo con* [id number] 08/03/2022 12:21 AM RADIATION DOSE METRICS: Total DLP (mGy-cm): 486.19 FINDINGS: ANTERIOR CIRCULATION: Right internal carotid artery: Intracranial segment is patent with no significant stenosis. No aneurysm. Right middle cerebral artery: No occlusion or significant stenosis. No aneurysm. Right anterior cerebral artery: No occlusion or significant stenosis. No aneurysm. Left internal carotid artery: Intracranial segment is patent with no significant stenosis. No aneurysm. Left middle cerebral artery: No occlusion or significant stenosis. No aneurysm. Left anterior cerebral artery: No occlusion or significant stenosis. No aneurysm. POSTERIOR CIRCULATION: Right vertebral artery: No occlusion or significant stenosis. No aneurysm. Left vertebral artery: The left vertebral artery is dominant. No occlusion or significant stenosis. Basilar artery: No occlusion or significant stenosis. No aneurysm. Right posterior cerebral artery: No occlusion or significant stenosis. No aneurysm. Left posterior cerebral artery: No occlusion or significant stenosis. No aneurysm. Brain: No focal hemorrhage or midline shift identified. Cerebral ventricles: No evidence of ventriculomegaly or hydrocephalus. The ventricles seem age-appropriate. Paranasal sinuses: Minimal bilateral maxillary sinus mucosal thickening. Moderate bilateral ethmoid sinus mucosal thickening. Bones/joints: Unremarkable. No acute fracture. Soft tissues: Unremarkable. PROCEDURE INFORMATION: Exam: CTA Neck With Contrast Exam date and time: 08/03/2022 3:33 AM Age: 32 years old Clinical indication: Numbness and weakness; Patient HX: Sudden onset of left upper and lower ext weakness/numbness this a. M. ; Additional info: Left sided weakness/numbness TECHNIQUE: Imaging protocol: Computed tomographic angiography of the neck with contrast. 3D rendering (Not supervised by radiologist): MIP and/or 3D reconstructed images were created by the technologist. Radiation optimization: All CT scans at this facility use at least one of these dose optimization techniques: automated exposure control; mA and/or kV adjustment per patient size (includes targeted exams where dose is matched to clinical indication); or iterative reconstruction. Contrast material: OMNI 350; Contrast volume: 88 ml; Contrast route: INTRAVENOUS (IV); COMPARISON: CT cervical spin wo con* [id number] 03/29/2016 10:16 PM RADIATION DOSE METRICS: Total DLP (mGy-cm): 486.19 FINDINGS: Right common carotid artery: No stenosis. No dissection or occlusion. Right internal carotid artery: No stenosis of the extracranial segment. No dissection or occlusion. Right external carotid artery: No occlusion or high-grade stenosis identififed. Left common carotid artery: No stenosis. No dissection or occlusion. Left internal carotid artery: No stenosis of the extracranial segment. No dissection or occlusion. Left external carotid artery: No occlusion or high-grade stenosis identififed. Right vertebral artery: No stenosis. No dissection or occlusion. Left vertebral artery: No stenosis. No dissection or occlusion. Soft tissues: No significant soft tissue swelling or other acute finding noted. Bones/joints: No acute fracture. CT/CT angio headneck* [id number] IMPRESSION: 1. No neggeg-zr-Brxcje acute occlusion or high-grade stenosis. 2. No focal hemorrhage or enhancing brain mass is noted. 3. Rlyk-dy-vftfamzx sinus disease. IMPRESSION: No stenosis or occlusion. REFERENCES: NASCET CRITERIA. The degree of stenosis in the cervical segment of the internal carotid artery is based on NASCET criteria. Normal is no stenosis. Mild is less than 50% stenosis. Moderate is 50-69% stenosis. Severe is 70% to 99% stenosis. Total occlusion is no detectable patent lumen.
[2022-08-03] MEDS: iohexol 350 mg/mL 500 mL Btl (per mL) IV ×2 (03:44→13:00)
[2022-08-03 04:02] LABS: Amphetamines Screen Urine Negative (Negative); Barbiturates Screen Urine Negative (Negative); Benzodiazepines Screen Urine Negative (Negative); Cocaine Screen Urine Negative (Negative); Opiate Screen Urine Negative (Negative); PCP Screen Urine Negative (Negative); THC Screen Urine Negative (Negative)
[2022-08-03 05:35] LABS: Troponin 5 2HR Delta 0 ABS# (0-10)
--- NOTE | 2022-08-03 06:10 | ECG_ITS ---
[facility] Test Date: 2022-08-03 Pat Name: Tyra Patel Department: Room: 279 Gender: Female Liner Reroll Tender: : 1990 Requested By: Fabio Luther Order Number: [id number] Sharon MD: Laly Mills M.D. Measurements Intervals [place] Rate: 72 P: 56 WV: 151 QRS: 77 QRSD: 97 T: 35 QT: 390 QTc: 427 Interpretive Statements SINUS RHYTHM Compared to ECG 08/03/2022 04:04:29 No significant changes Electronically Signed On 08-03-2022 13:14:13 JOURNEYMAN PRESS OPERATOR by Laly Mills M.D. [id number]
--- NOTE | 2022-08-03 08:23 | PC.PHAR ---
pt states she takes care of her own medications-pt states she no longer has an albuterol inhaler ext med history doesnt show when last filled rx written 09/24/[address]Donald Yuan
[2022-08-03 10:18] LABS: Troponin 5 6HR Delta 0 ng/L (0-12)
--- NOTE | 2022-08-03 12:15 | USCV_ITS ---
Tyra Patel Age: 32 Gender: F : 1990 Exam Date: 08/03/2022 15:37 Ordering Phys: Devonte Lopez MD Technologist: MIKE Exam Location: [facility] [place] Indication: ACUTE LEFT SIDED WEAKNESS BP: 121 / 81 HR: 66 Rhythm: Sinus Technical Quality: Adequate MEASUREMENTS (Male / Female) Normal Values 2D ECHO LVOT Diameter 2.0 cm LV Ejection Fraction MOD 2C 68.1 % LV Ejection Fraction 2C AL 67.6 % LA Diameter 3.3 cm LA Width 2.6 cm LA Height 3.7 cm RA Width 2.9 cm RA Height 3.8 cm Aorta at Sinotubular Diameter 2.0 cm IVC Diameter 1.5 cm M-MODE Aortic Annulus Diameter 2.7 cm LA Ao Ratio MM 1.1 MV E Point Septal Separation 0.3 cm DOPPLER AV Peak Velocity 137.0 cm/s LVOT Peak Velocity 105.0 cm/s AV Area Cont Eq vti 3.0 cm squared AV Area Cont Eq pk 2.4 cm squared MV Peak Velocity 136.0 cm/s MV Area PHT 4.1 cm squared Mitral E to A Ratio 1.9 MV E' Velocity 99.0 cm/s Mitral E to LV E' Septal Ratio 7.1 TR Peak Velocity 118.0 cm/s TR Peak Gradient 5.6 mmHg TR Mean Velocity 86.9 cm/s TR Mean Gradient 3.2 mmHg TR Velocity Time Integral 24.6 cm TV Peak E Velocity 58.0 cm/s Right Atrial Pressure 3.0 mmHg Pulmonary Artery Systolic Pressu 8.6 mmHg PV Peak Velocity 103.0 cm/s RV Acceleration Time 0.1 s RV Ejection Time 0.4 s RV AcT/ET 0.3 FINDINGS Left Ventricle Normal left ventricular size, systolic function and wall thickness, with no regional wall motion abnormalities. Normal left ventricular wall thickness. Normal diastolic filling pattern. Left ventricular ejection fraction is estimated at 60 %. Right Ventricle The right ventricle is normal in size and function. Normal right ventricular systolic pressure. Right Atrium The right atrium is normal in size. Left Atrium The left atrium is normal in size. Mitral Valve Structurally normal mitral valve without significant stenosis or prolapse. There is no mitral regurgitation. Aortic Valve Structurally normal aortic valve without significant sclerosis or stenosis. There is no aortic regurgitation. Tricuspid Valve Structurally normal tricuspid valve without significant stenosis or regurgitation. Pulmonary artery systolic pressure is normal. Pulmonic Valve Structurally normal pulmonic valve without significant stenosis. There is no pulmonic regurgitation. Pericardium Normal pericardium without effusion. Aorta Normal ascending aorta dimension. IVC The inferior vena cava appears normal. CONCLUSIONS Normal transthoracic echocardiogram. A bubble study was performed as well. The study is negative for a shunt. There are no prior echocardiogram studies to compare. Dr. Levon Clemons MD (Electronically Signed) Final Date: 03 August 2022 17:38 S
--- NOTE | 2022-08-03 12:21 | CT_ITS ---
WS: [id number] EXAMINATION: CT abdomen pelvis w con* [id number] REASON FOR EXAM: Uncontrolled Early onset Hypertension COMPARISON: 04/01/2019. ORDER DATE: 08/03/2022 12:31 PM TOTAL EXAM DLP: 897.[address] scans at [facility] use at least one of these dose optimization techniques: automated e xposure control; mA and/or kV adjustment per patient size (includes targeted exams where dose is matc hed to clinical indication); or iterative reconstruction. TECHNIQUE: Transaxial imaging through the abdomen and pelvis was performed with 2-D reformats followi ng the intravenous administration of Omnipaque 350 100 ml FINDINGS: There is linear and reticular scarring bilaterally in the bases, this surrounds a subpleural 5 mm non calcified nodule on the right. There is no sign of pneumoperitoneum. The liver was unremarkable except for 2 separate 3 mm hypodensities in the posterior right lobe too s mall for characterize probably cyst.. The gallbladder is contracted. The spleen and pancreas were unr emarkable. There is a normal appearance of both adrenal glands and both kidneys. The small bowel pattern is not significantly dilated and there are no significant air-fluid levels. There is a normal-appearing appendix. There is moderate fecal loading of the colon. There is no ascites or increased cul-de-sac fluid. There is a 2.5 cm cyst in the right adnexa. The ut erus and left adnexa are unremarkable. The urinary bladder as imaged is unremarkable. There are degenerative disc and spine changes with generalized spondylosis with moderate disc narrowi ng at L5-S1. CT/CT abdomen pelvis w con* [id number] IMPRESSION: Possible pulmonary nodule versus a component of reticular scarring present. Right adnexal cyst. No acute abdominal findings.
[2022-08-03] MEDS: sodium chloride 0.9% 500 ML IV (14:37)
--- NOTE | 2022-08-03 17:22 | P.PN_ITS ---
Subjective Subjective: Patient was seen and examined this morning, had no left-sided weakness,though still complaining of minimal numbness, worked well with physical therapy. Vitals/I&O/Wt Last Vital Signs Temp 97.6 F 08/03/22 08:00 Pulse 69 08/03/22 16:00 Resp 17 08/03/22 16:00 BP 112/64 08/03/22 16:00 Pulse Ox 98 08/03/22 16:00 O2 Del Method 08/03/22 03:55 08/03/22 08/03/22 08/03/22 06:59 14:59 22:59 Intake Total 1000 / 1000 270 / 270 500 / 770 Output Total 0 / 0 Balance 1000 / 1000 270 / 270 500 / 770 Weight last 48 hrs Weight 89.448 kg Weight 87.906 kg Weight 87.906 kg Physical Exam Const: COMMON NORMALS: patient oriented x3 HENMT: COMMON NORMALS: normocephalic, atraumatic, hearing grossly normal bilaterally, external ears normal and Normal external nose present HEAD & SCALP: normocephalic and atraumatic NOSE: Normal external nose present EXTERNAL EAR: Yes external ears normal Eye: GENERAL EYE: appearance normal, both eyes and all related structures Resp: COMMON NORMALS: normal respiratory effort, No retractions, No use of accessory muscles and clear to auscultation bilaterally EFFORT & INSPECTION: Yes symmetric chest movement AUSCULTATION: clear to auscultation bilaterally Cardio: COMMON NORMALS: regular rate, regular rhythm, S1 normal heart sound present, S2 normal heart sound present, No gallops present (Cardio), No murmurs present (Cardio), No rub (Cardio) and Peripheral pulses 2+ throughout RATE: regular rate RHYTHM: regular rhythm HEART SOUNDS: S1 normal heart sound present and S2 normal heart sound present PERIPHERAL PULSES: Peripheral pulses 2+ throughout GI: COMMON NORMALS: Normal to inspection, nondistended, normoactive bowel sounds present, Soft to palpation, non-tender, No hepatosplenomegaly present and no masses AUSCULTATION: Yes normoactive bowel sounds PALPATION: Yes Soft to palpation and Yes No hepatosplenomegaly present RECTAL EXAM: deferred Extremity: COMMON NORMALS: no clubbing, cyanosis or edema and no pedal edema Neuro: COMMON NORMALS: patient oriented x3 Data 08/03/22 00:05 08/03/22 00:05 A&P Assessment and plan (1) Left-sided weakness: (2) Paresthesia: (3) No pertinent past medical history: (4) Hypertension: Plan 32-year-old female with past medical history of hypertension at a very early age, currently controlled well with lisinopril came in with chief complaint of acute onset of severe left-sided weakness accompanied with numbness started yesterday night. Currently she is being managed for: Assessment: Stroke like symptoms with acute onset of left-sided weakness and numbness History of early age onset hypertension: Patient will possibly need outpatient work-up for secondary causes of hypertension. Headache Kbqr-qz-xpnybyay sinus disease Plan: CT head without contrast: No acute interval pathology CTA head and neck: No flow-limiting stenosis MR head wo con: Unremarkable Carotid Doppler: Normal Orthostatic vital signs checked: Negative 2D echo with bubble study: EKG: No significant arrhythmia noted Telemetry monitoring: No significant arrhythmia CT abdomen and pelvis with contrast: Normal appearance of both adrenal glands Follow ARR, plasma fractionated metanephrine Lipid panel HbA1c:5.1 TSH 2.66 Procalcitonin normal B12: Folic acid Frequent neurochecks Urine drug screen negative Continue lisinopril for now Continue Tylenol Full code DVT prophylaxis: SCDs. Attestations Medical Necessity Statement*: Patient is to be in hospital for monitoring of strokelike symptoms. Coding Level of Care Code Acute [place] Engine Operator for Radha Fwharpreet Exam Detailed Diagnoses Left-sided weakness R53.1 Paresthesia R20.2 No pertinent past medical history Z78.9 Hypertension I10
--- NOTE | 2022-08-03 18:17 | PC.NURSE ---
Discharge Note Patient discharged to home via private vehicle against medical advise accompanied by . Discharge instructions reviewed with patient and/or inside sales representative. Mobile pharmacy medications and/or prescriptions provided. Belongings/home medications returned.
[2022-08-10 11:18] LABS: Plasma Renin Activity LC/MS/MS 4.22 ng/mL/h (0.25-5.82)
[2022-08-15 10:35] LABS: Metanephrine Total Free 26 pg/mL (<=205)
== END 2022-08-03 18:17 | disposition left against medical advice (07) ==
LOC: ER 08-03 01:43 → MEDSURG 08-03 01:57
PROVIDERS: Admitting Provider Internal Medicine; Emergency Provider Emergency Medicine; Visit Provider Internal Medicine
DX: R53.1 Weakness (principal); R20.2 Paresthesia of skin; Z78.9 Other specified health status; I10 Essential (primary) hypertension; F17.210 Nicotine dependence, cigarettes, uncomplicated
CPT/HCPCS: 36415; 36416; 70450; 70496; 70498; 70551; 71045; 74177; 80053; 80061; 80306; 81003; 82088; 82962; 83036; 83835; 84145; 84244; 84443; 84484; 84703; 85025; 93005; 93880; 96372; 96374; 97110; 97161; 99285; C8929; G0378; J1885; J2550; J7030; J7040; Q9967

== ENCOUNTER 2022-08-14 10:49 | Outpatient (CLI) | payer OTHER, SELFPAY ==
--- NOTE | 2022-08-14 | US_ITS ---
DIAGNOSTIC BILATERAL DIGITAL BREAST TOMOSYNTHESIS MAMMOGRAPHY WITH CAD Bilateral breast ultrasound, limited. HISTORY: DISCHARGE, palpable masses in each breast. COMPARISON: None available. TECHNIQUE: Bilateral craniocaudad, mediolateral oblique, and mediolateral views are submitted with tomosynthesis and SM. Spot compression bilateral CC and MLO projections. Computer aided detection utilized. Breast composition: The breasts are extremely dense, which lowers the sensitivity of mammography. Partially obscured nodules bilaterally in the middle depth of each breast. RIGHT breast partially obscured mass measures 16 x 13 mm in the upper outer quadrant. Partially obscured mass in the LEFT breast near 12:00 measures 24 x 22 mm in the middle depth. There is adjacent mild distortion of soft tissues which will be evaluated by ultrasound also. No duct dilatation or mass in the subareolar regions. Bilateral breast ultrasound. RIGHT breast: Simple cyst 9:00, 4 cm from the nipple measures 11 x 12 x 6 mm. No solid mass. There is very mild prominent subareolar ducts. Focal fibrotic cystic change level o'clock 3 cm from the nipple. LEFT breast: Simple cyst 12:00, 1 cm from the nipple measures 26 x 23 x 13 mm. Mildly prominent ducts but no intraductal nodule. IMPRESSION: BI-RADS: 2-Benign FOLLOW UP: 1 Year Follow-up 1. Bilateral breast cysts correspond to the palpable abnormalities. 2. Moderately prominent subareolar ducts. No ectasia or intraductal nodule. MTDD
--- NOTE | 2022-08-14 10:55 | MM_ITS ---
WS: [id number] DIAGNOSTIC BILATERAL DIGITAL BREAST TOMOSYNTHESIS MAMMOGRAPHY WITH CAD Bilateral breast ultrasound, limited. HISTORY: DISCHARGE, palpable masses in each breast. COMPARISON: None available. TECHNIQUE: Bilateral craniocaudad, mediolateral oblique, and mediolateral views are submitted with to mosynthpamela and SM. Spot compression bilateral CC and MLO projections. Computer aided detection utili zed. Breast composition: The breasts are extremely dense, which lowers the sensitivity of mammography. Par tially obscured nodules bilaterally in the middle depth of each breast. RIGHT breast partially obscur ed mass measures 16 x 13 mm in the upper outer quadrant. Partially obscured mass in the LEFT breast n ear 12:00 measures 24 x 22 mm in the middle depth. There is adjacent mild distortion of soft tissues which will be evaluated by ultrasound also. No duct dilatation or mass in the subareolar regions. Bilateral breast ultrasound. RIGHT breast: Simple cyst 9:00, 4 cm from the nipple measures 11 x 12 x 6 mm. No solid mass. There is very mild prominent subareolar ducts. Focal fibrotic cystic change level o'clock 3 cm from the nippl e. LEFT breast: Simple cyst 12:00, 1 cm from the nipple measures 26 x 23 x 13 mm. Mildly prominent ducts but no intraductal nodule. MM/[place] [id number] IMPRESSION: BI-RADS: 2-Benign FOLLOW UP: 1 Year Follow-up 1. Bilateral breast cysts correspond to the palpable abnormalities. 2. Moderately prominent subareolar ducts. No ectasia or intraductal nodule.
== END 2022-08-14 10:50 | disposition home or self-care (01) ==
LOC: RAD 10:50
PROVIDERS: PCP Family Medicine; Visit Provider Family Medicine
DX: N64.52 Nipple discharge (principal); N60.02 Solitary cyst of left breast; N60.01 Solitary cyst of right breast
CPT/HCPCS: 76642; 77062; G0279

== ENCOUNTER 2022-10-31 00:54 | Emergency (ER) | payer SELFPAY ==
[2022-10-31 01:02] VITALS: BP 123/92; PULSE 91; RESP 20; TEMP 36.9; O2SAT 99; BMI 34.3
--- NOTE | 2022-10-31 01:02 | XRR_ITS ---
PROCEDURE INFORMATION: Exam: XR Chest Exam date and time: 10/31/2022 1:09 AM Age: 32 years old Clinical indication: Left-sided; Patient HX: C/O left lower chest pain. ; Additional info: Cp TECHNIQUE: Imaging protocol: Radiologic exam of the chest. Views: 1 view. COMPARISON: CR XR chest 1V portable [id number] 08/03/2022 12:16 AM FINDINGS: Lungs: Unremarkable. No consolidation. Pleural spaces: Unremarkable. No pleural effusion. No pneumothorax. Heart/Mediastinum: Unremarkable. No cardiomegaly. Bones/joints: Unremarkable. XR/XR chest 1V portable [id number] IMPRESSION: No acute findings.
--- NOTE | 2022-10-31 01:03 | W.ED.CHESTPA ---
HPI - Chest Pain General: Chief Complaint: Abdominal Pain Stated Complaint: left upper quad pain, swelling Time Seen by Provider: 10/31/22 00:58 Source: patient Mode of arrival: ambulatory Limitations: no limitations History of Present Illness: 32-year-old female who states she been having left lower chest pain that started this morning. States its been a sharp pain that seems to come and go states it is currently 6 out of 10 is worse with palpation improved with rest denies any cough denies any fever denies any vomiting or diarrhea Associated symptoms: Deny abdominal pain, dyspnea, fever(s), nausea or vomiting Review of Systems Const: Denies: fever(s), chills, body aches or change in appetite Eyes: Denies: blurry vision or eye discomfort ENMT: Denies: throat pain or dental pain Card: Reports: chest pain Resp: Denies: dyspnea GI: Denies: abdominal pain, nausea, vomiting or diarrhea : Denies: dysuria Musc: Denies: neck pain or back pain Skin/Breast: Denies: rash Neuro: Denies: headache(s) Psych: Denies: depression Adam/Lymph: Denies: easy bruising All/Imm: Denies: urticaria PFSH ED PFSH: Medical History Hypertension Left-sided weakness No pertinent past medical history Paresthesia Social History Smoking and tobacco status: current every day smoker Physical Exam Const: COMMON NORMALS: no acute distress, patient oriented x3 and healthy appearing HENMT: COMMON NORMALS: normocephalic and atraumatic HEAD & SCALP: normocephalic and atraumatic Eye: COMMON NORMALS: Equal, round and reactive pupils present and EOMs intact bilaterally PUPIL: Yes Equal, round and reactive pupils present Neck/C-Spine: COMMON NORMALS: full ROM and supple Chest: COMMONS NORMALS: normal inspection of the chest OTHER: point tender over left lowewr chest wall Resp: COMMON NORMALS: normal respiratory effort, No retractions, No use of accessory muscles and clear to auscultation bilaterally AUSCULTATION: clear to auscultation bilaterally Cardio: COMMON NORMALS: regular rate, regular rhythm and No murmurs present (Cardio) RATE: regular rate RHYTHM: regular rhythm GI: COMMON NORMALS: Normal to inspection, nondistended, normoactive bowel sounds present, Soft to palpation, non-tender and no masses PALPATION: Yes Soft to palpation Extremity: COMMON NORMALS: normal to inspection and full ROM Neuro: COMMON NORMALS: patient oriented x3, moves all extremities and no focal motor deficits Psych: COMMON NORMALS: mental status grossly normal, Normal thought process present and cooperative THOUGHT PROCESS: Normal thought process present Skin: COMMON NORMALS: no rashes or lesions noted and no wounds GENERAL SKIN EXAM: no rashes or lesions noted Course Vital Signs: Vital signs: Vital Signs Temperature 98.4 F 10/31/22 01:02 Pulse Rate 91 10/31/22 01:02 Respiratory Rate 20 H 10/31/22 01:02 Blood Pressure 123/92 10/31/22 01:02 Pulse Oximetry 99 10/31/22 01:02 Oxygen Delivery Me thod 10/31/22 01:02 MDM - Chest Pain Medical Decision Making Patient presents here with left lower chest pain is likely chest wall pain she is point tender on exam her abdominal exam here is benign x-ray EKG and blood work are all normal we will place her on Naprosyn she is stable for discharge she is to follow-up PCP and return if worsening. Lab Data 10/31/22 01:05 10/31/22 01:05 Radiology Impressions Chest X-Ray 10/31/22 01:02 IMPRESSION: No acute findings. Laboratory Results WBC 11.1 10^3/uL (4.0-10.0) H 10/31/22 01:05 RBC 5.28 10^6/uL (4.1-5.3) 10/31/22 01:05 Hgb 14.9 g/dL (11.5-15.3) 10/31/22 01:05 Hct 44.2 % (37.0-47.0) 10/31/22 01:05 MCV 83.7 fl (81-99) 10/31/22 01:05 MCH 28.2 pg (28.0-34.0) 10/31/22 01:05 MCHC 33.7 g/dL (30.0-36.0) 10/31/22 01:05 RDW 12.4 % (12.1-15.1) 10/31/22 01:05 Plt Count 247 10^3/cmm (130-400) 10/31/22 01:05 MPV 11.6 fL (7.4-10.4) H 10/31/22 01:05 Neut % (Auto) 50.9 % 10/31/22 01:05 Lymph % (Auto) 35.2 % 10/31/22 01:05 [place] % (Auto) 10.0 % 10/31/22 01:05 Eos % (Auto) 3.1 % 10/31/22 01:05 Baso % (Auto) 0.5 % 10/31/22 01:05 Neut # (Auto) 5.67 10^3/uL (1.8-7.7) 10/31/22 01:05 Lymph # (Auto) 3.9 10^3/uL (0.8-4.8) 10/31/22 01:05 [place] # (Auto) 1.1 10^3/uL (0.2-0.9) H 10/31/22 01:05 Eos # (Auto) 0.4 10^3/uL (0.0-0.8) 10/31/22 01:05 Baso # (Auto) 0.1 10^3/uL (0.0-0.1) 10/31/22 01:05 Nucleated RBC % (auto) 0 % 10/31/22 01:05 Nucleated RBCs # 0.0 /100WBC 10/31/22 01:05 Sodium 137 mmol/L (136-145) 10/31/22 01:05 Potassium 3.9 mmol/L (3.5-5.1) 10/31/22 01:05 Chloride 103 mmol/L (98-107) 10/31/22 01:05 Carbon Dioxide 22 mmol/L (22-29) 10/31/22 01:05 Anion Gap 15.9 (5-19) 10/31/22 01:05 BUN 8 mg/dL (6-20) 10/31/22 01:05 Creatinine 0.7 mg/dL (0.5-0.9) 10/31/22 01:05 GFR Calculation 97.6 mL/min (90-130) 10/31/22 01:05 Glucose 101 mg/dL (65-115) 10/31/22 01:05 Calculated Osmolality 282 mOsm/kg (285-295) L 10/31/22 01:05 Calcium 9.4 mg/dL (8.5-10.5) 10/31/22 01:05 Total Bilirubin 0.2 mg/dL (0.15-1.2) 10/31/22 01:05 AST 24 U/L (0-32) 10/31/22 01:05 ALT 30 U/L (0-33) 10/31/22 01:05 Alkaline Phosphatase 71 U/L (35-105) 10/31/22 01:05 Total Protein 7.0 g/dL (6.6-8.7) 10/31/22 01:05 Albumin 4.1 g/dL (3.5-5.2) 10/31/22 01:05 Globulin 2.9 g/dL (1.3-4.6) 10/31/22 01:05 Lipase 22 U/L (13-60) 10/31/22 01:05 HCG, Qual Negative (Negative) 10/31/22 01:05 EKG Data EKG 1: I personally reviewed and interpreted this EKG as follows: EKG interpretation date: 10/31/22 EKG interpretation time: 01:46 Interpretation: nsr hr [address] or t wave abnormalities qrs 88 qtc 37 Discharge Plan Discharge Patient Disposition: Home Clinical Impression: Chest wall pain Condition: Stable Prescriptions: New Naprosyn 500 mg tablet 500 mg PO BID PRN (Reason: pain) Qty: 20 0RF No Action lisinopril 10 mg tablet 10 mg PO DAILY@2030 ibuprofen 200 mg Tablet 200 mg PO Q6H PRN (Reason: Pain) norethindrone (contraceptive) 0.35 mg tablet 0.35 mg PO DAILY@2030 Discharge Orders: Discharge ED (Routine); Ordered 10/31/22 Ordered By: Fabio Luther Referrals: Ankita West DO [Primary Care Provider] - 1-3 days Discharge Diet: Advance as tolerated Discharge Activity: Resume usual activity Patient Instructions: Chest Wall Pain (ED) Coding Level of Care Code ED Delimber Operator for Radha Stokes
[2022-10-31] MEDS: ondansetron 2 mg/ML SDV 2 mL 4 MG IVP (01:15)
[2022-10-31] MEDS: ketorolac 30 mg/mL INJ 15 MG IVP (01:17)
[2022-10-31 01:18] LABS: Basophils # 0.1 10^3/uL (0.0-0.1); Basophils % 0.5 %; Eosinophils # 0.4 10^3/uL (0.0-0.8); Eosinophils % 3.1 %; Hematocrit 44.2 % (37.0-47.0); Hemoglobin 14.9 g/dL (11.5-15.3); Lymphocytes # 3.9 10^3/uL (0.8-4.8); Lymphocytes % 35.2 %; Mean Corpuscular HGB Conc 33.7 g/dL (30.0-36.0); Mean Corpuscular Hemoglobin 28.2 pg (28.0-34.0); Mean Corpuscular Volume 83.7 fl (81-99); Mean Platelet Volume 11.6 fL (7.4-10.4); Monocytes # 1.1 10^3/uL (0.2-0.9); Neutrophils # 5.67 10^3/uL (1.8-7.7); Neutrophils % 50.9 %; Nucleated Red Blood Cells % 0 %; Platelet Count 247 10^3/cmm (130-400); Red Blood Count 5.28 10^6/uL (4.1-5.3); Red Cell Distribution Width 12.4 % (12.1-15.1); White Blood Count 11.1 10^3/uL (4.0-10.0)
[2022-10-31 01:40] LABS: Alanine Aminotransferase 30 U/L (0-33); Albumin Level 4.1 g/dL (3.5-5.2); Alkaline Phosphatase 71 U/L (35-105); Anion Gap 15.9 (5-19); Aspartate Amino Transferase 24 U/L (0-32); Blood Urea Nitrogen 8 mg/dL (6-20); Calcium 9.4 mg/dL (8.5-10.5); Carbon Dioxide 22 mmol/L (22-29); Chloride 103 mmol/L (98-107); Globulin 2.9 g/dL (1.3-4.6); Glomerular Filtration Rate 97.6 mL/min (90-130); Glucose 101 mg/dL (65-115); Lipase 22 U/L (13-60); Osmolality Calculated 282 mOsm/kg (285-295); Potassium 3.9 mmol/L (3.5-5.1); Sodium 137 mmol/L (136-145); Total Bilirubin 0.2 mg/dL (0.15-1.2)
[2022-10-31 01:44] LABS: HCG, Serum Qual Negative (Negative)
--- NOTE | 2022-10-31 01:46 | ECG_ITS ---
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 Measurements Intervals [place] Rate: 67 P: 57 MA: 124 QRS: 85 QRSD: 88 T: 55 QT: 362 QTc: 383 Interpretive Statements SINUS RHYTHM Compared to ECG 08/03/2022 06:14:18 No significant changes Electronically Signed On 10-31-2022 15:05:18 LIEUTENANT/DEPUTY by Levon Clemons M.D. [id number] f
[2022-10-31 01:55] VITALS: BP 120/68; PULSE 69; RESP 18; O2SAT 98
[2022-10-31 02:03] VITALS: PULSE 70; RESP 16; O2SAT 97
== END 2022-10-31 02:04 | disposition home or self-care (01) ==
PROVIDERS: Emergency Provider Emergency Medicine; PCP Family Medicine
DX: R07.89 Other chest pain (principal); I10 Essential (primary) hypertension; F17.210 Nicotine dependence, cigarettes, uncomplicated
CPT/HCPCS: 71045; 80053; 83690; 84703; 85025; 93005; 96374; 96375; 99285; J1885; J2405

== ENCOUNTER 2023-02-18 11:23 | Day surgery (SDC) | payer BC, MEDICAID, SELFPAY ==
[2023-02-15 09:13] VITALS: BMI 34.3
[2023-02-18] VITALS (11 sets, daily range): BP systolic 112–153; BP diastolic 69–96; PULSE 85–112; RESP 16–18; TEMP 36.1–37.2; O2SAT 97–100
--- NOTE | 2023-02-18 11:37 | W.PM.OPSUD ---
Surgery/Procedure H&P Update DATE OF PROCEDURE: February 18, 2023 DATE H&P PERFORMED: 02/06/23 H&P UPDATE INFORMATION: I have reviewed H&P completed within last 30 days, I have examined patient prior to procedure and No changes to prior documentation PLANNED PROCEDURE: Operation Date: 02/18/23 13:10 [place] Procedures p 85909 x2 bilateral breast lumpectomyNO NEEDLE LOC N63.0(Bilateral) - Vineet Ocampo DO
--- NOTE | 2023-02-18 12:03 | ANES.PREANE2 ---
Pre-Anesthetic Assessment Height/Weight: Height 1.63 m Weight 90.718 kg Temp Pulse Resp BP Pulse Ox O2 Del Method 99.0 F 87 16 136/96 97 Room Air 02/18/23 11:45 02/18/23 11:45 02/18/23 11:45 02/18/23 11:45 02/18/23 11:45 02/18/23 11:57 Operation Date: 02/18/23 13:10 Proposed Procedures p 26344 x2 bilateral breast lumpectomyNO NEEDLE LOC N63.0(Bilateral) - Vineet Ocampo DO Familial anesthetic complications: None Was Beta Leslie taken within 24 hours: N/A Was Clonidine taken within 24 hours: N/A Last intake: Intake Last Liquid Date 02/17/23 Last Liquid Time 22:30 Last Solid Date 02/17/23 Last Solid Time 22:30 Social Tobacco and No alcohol Exam alert, oriented x 3, clear to auscultation bilaterally and regular rate & rhythm Airway Mallampati: Class II Dentition: chipped Pulmonary None reported CV/HEM Hypertension None reported Hepatic None reported GI None reported Metabolic None reported Musc/skel None reported Neuropsych Cerebrovascular Accident (? no further episodes) Anesthetic Plan ASA status: 2 Anesthesia: Choice Risk of > 500 ml blood loss (7ml/kg in children): No Medications/Allergies Home Medications Medication Instructions Recorded Confirmed Last Taken Type lisinopril 10 mg tablet 10 mg PO DAILY@203008/03/22 02/15/23 02/14/23 History norethindrone (contraceptive) 0.35 0.35 mg PO DAILY@203008/03/22 02/15/23 02/15/23 History mg tablet Allergies Allergy/AdvReac Type Severity Reaction Status Date / Time ziprasidone [From Geodon] Allergy ADR-Swelling Verified 02/06/23 15:28 of the Eye morphine AdvReac ADR-Agitate Verified 02/06/23 15:28 d [facility] Anesthesia Medical History Hypertension Left-sided weakness No pertinent past medical history Paresthesia Family History Grandmother Breast cancer Maternal and Paternal Family/Other Breast cancer 2 Paternal aunts. Social History Smoking and tobacco status: current every day smoker Data Anesthesia Cardiac Studies: Echocardiogram 08/03/22
[2023-02-18 12:15] LABS: OR HCG Qualitative Urine Negative (Negative)
[2023-02-18] MEDS: sodium chloride 0.9% 1,000 ML 30 ML IV (12:17)
[2023-02-18] MEDS: ceFAZolin 2,000 MG in sodium chloride 0.9% (plus) 50 ML 100 MG IV (12:39)
[2023-02-18] MEDS: lidocaine-epi 2% 20 mL INJ INJECTION (12:52)
--- NOTE | 2023-02-18 13:24 | PM.OP ---
Operative Report Date of procedure: February 18, 2023 Pre-op diagnosis: Painful cyst bilateral breasts Post-op diagnosis: same Procedure done: Bilateral breast lumpectomies Implants: None Specimens removed/disposition: Right breast lumpectomy Left breast lumpectomy Surgeon: Dr. Vineet Ocampo DO Anesthesia: General Estimated blood loss (mL): 5 Complications: None apparent Brief History: Is a very pleasant 32-year-old female who presented to my office with bilateral breast pain. Ultrasounds showed cysts in both breast. She desired excision. The risks and benefits of bilateral breast lumpectomies were explained and documented. Procedure: The patient was brought back into the operating room. She was placed on the OR table in the supine position. The left breast and axilla were inspected prepped and draped in usual sterile fashion. A timeout was performed. All present were in agreement. Next, after localization a 5 cm circumareolar incision was made in the superior portion of the left areola. Electrocautery was used to carve out a lumpectomy specimen. Specimen was passed off whole. Hemostasis was achieved with electrocautery. Next attention was brought to the right breast. A 5 cm circumareolar incision was made on the inferior portion of the right areola. Electrocautery was then used to perform a lumpectomy over an 11 mm cystic structure. Additional tissue was taken twice. Therefore 3 specimens were passed off on the right. Hemostasis was achieved with electrocautery. Bilaterally the breasts were very fibrous and dense. The dermis was approximated with 3-0 Vicryl. The skin was closed with 4-0 Monocryl in a subcuticular and running fashion. Dermabond was applied. Patient tolerated the procedure well.
[2023-02-18] MEDS: HYDROcodone-acetaminophen 10-325 mg Tablet 1 TAB PO (14:29)
--- NOTE | 2023-02-18 16:05 | ANE.PACU2 ---
Inpatient post-anesthesia follow up: Airway intact: Yes Vital signs: Temperature 98.0 F Pulse Rate 90 Respiratory Rate 16 Blood Pressure 131/87 Pulse Oximetry 98 Oxygen Delivery Me thod Room Air Oxygen Flow Rate 6 Fraction of Inspir ed Oxygen Hydration adequate: Yes Nausea and vomiting: No Pain level: 1 Mental status: Baseline
== END 2023-02-18 15:05 | disposition home or self-care (01) ==
PROVIDERS: Anesthesiology; PCP Family Medicine; Visit Provider Surgery
PROC: (CPT 19120; principal; 2023-02-18 13:00)
DX: N60.02 Solitary cyst of left breast (principal); N60.01 Solitary cyst of right breast; I10 Essential (primary) hypertension; F17.200 Nicotine dependence, unspecified, uncomplicated
CPT/HCPCS: 19120; 81025; 84703; 88307; J0690; J1100; J1170; J2250; J2405; J2704; J3010; J7030

== ENCOUNTER 2023-05-06 12:28 | Outpatient (CLI) | payer BC, MEDICAID, SELFPAY ==
--- NOTE | 2023-05-06 12:36 | US_ITS ---
WS: [id number] ULTRASOUND BILATERAL BREAST, Limited HISTORY: N60.09 - Solitary cyst of unspecified breast COMPARISON: 08/14/2022 TECHNIQUE: 2-D and Doppler. RIGHT: Several cysts are identified within the RIGHT breast. Benign cyst at 9:00, 4 cm from the nippl e measures 6 x 7 x 5 mm. Cyst has decreased in size since 08/14/2022. LEFT: Complex cyst at 12:00, 1 cm from the nipple. This cyst has changed in appearance since the prio r study. There is a focal area of wall thickening anteriorly causing mild deformity of the cystic mas s. There are few small low-level echoes within the cyst itself. No increased vascularity. The cyst me asures 1.6 x 2.2 x 0.8 cm. Slightly decreased in size. IMPRESSION: US/US breast BI complete [id number] BI-RADS: 3-Probably Benign FOLLOW-UP: 6 Month Follow-up Complex cyst in the LEFT breast at 12:00 has changed in appearance since the pr ior study. Development of a thick asymmetric wall since the prior study. The cy st has slightly decreased in size but now appears more complex. By history this cyst has undergone prior aspiration. The wall thickening may be due to hemorrh age within the cystic mass. Suggest 6-month ultrasound follow-up LEFT breast on ly.
== END 2023-05-06 12:29 | disposition home or self-care (01) ==
LOC: RAD 12:29
PROVIDERS: PCP Family Medicine; Visit Provider Obstetrics & Gynecology
DX: N60.02 Solitary cyst of left breast (principal); N64.4 Mastodynia
CPT/HCPCS: 76641

== ENCOUNTER 2023-09-22 11:18 | Emergency (ER) | payer BC, MEDICAID, SELFPAY ==
[2023-09-22 11:22] VITALS: BP 135/93; PULSE 88; RESP 16; TEMP 36.4; O2SAT 98; BMI 37.9
--- NOTE | 2023-09-22 11:43 | CTR_ITS ---
PROCEDURE INFORMATION: Exam: CT Head Without Contrast Exam date and time: 09/22/2023 12:02 PM Age: 33 years old Clinical indication: Pain; Dizziness; Headache; Additional info: Pressure in occipital region, vertigo, syncope TECHNIQUE: Imaging protocol: Computed tomography of the head without contrast. Radiation optimization: All CT scans at this facility use at least one of these dose optimization techniques: automated exposure control; mA and/or kV adjustment per patient size (includes targeted exams where dose is matched to clinical indication); or iterative reconstruction. COMPARISON: MR head wo con* [id number] 08/03/2022 8:44 AM RADIATION DOSE METRICS: Total DLP (mGy-cm): 901.3 FINDINGS: Brain: No acute intracranial hemorrhage or mass effect. Cerebral ventricles: Size within normal range for age. No midline shift. Paranasal sinuses: Paranasal sinus mucosal thickening is most prominent in bilateral ethmoid sinuses and in the left frontal sinus. Mastoid air cells: Visualized portions of mastoid sinuses are not opacified. Bones/joints: No obvious fracture or aggressive destructive lesion involving the cranium. Soft tissues: Other than as stated above, no obvious acute abnormality. CT/CT head wo con* [id number] IMPRESSION: No acute intracranial hemorrhage or mass effect.
--- NOTE | 2023-09-22 11:45 | ED_ITS ---
HPI - Headache 2 General: Chief Complaint: Headache Stated Complaint: Headache Time Seen by Provider: 09/22/23 11:26 History of Present Illness: Patient presents to the ER with complaints of head pressure in the occipital region for the last 3 weeks. She said gets very intense and when it gets intense she becomes dizzy and sometimes passes out. Patient has frequent headaches and she says this is a different feeling than her normal headache. Patient denies any trauma, overt sickness, nausea vomiting, fevers chills coughs colds sore throats, changes in medication, Review of Systems 2 General: Reports: 10 or more systems reviewed and unremarkable except in HPI and below PFSH ED 2 PFSH: Medical History Hypertension Paresthesia Left-sided weakness No pertinent past medical history Family History Grandmother Breast cancer Maternal and Paternal Family/Other Breast cancer 2 Paternal aunts. Social History Smoking and tobacco/nicotine status: current every day tobacco/nicotine user Physical Exam 2 Const: COMMON NORMALS: no acute distress, average body habitus, patient oriented x3, no limitations, healthy appearing, alert and well nourished HENMT: COMMON NORMALS: normocephalic, atraumatic, hearing grossly normal bilaterally, external ears normal, EAC's normal, Normal external nose present, moist oral mucous membranes and oropharynx normal HEAD & SCALP: normocephalic and atraumatic NOSE: Normal external nose present EXTERNAL EAR: Yes external ears normal EXTERNAL AUDITORY CANAL: EAC's normal Eye: COMMON NORMALS: Equal, round and reactive pupils present, EOMs intact bilaterally, conjunctivae normal and no scleral icterus CONJUNCTIVA: Yes conjunctivae normal PUPIL: Yes Equal, round and reactive pupils present Neck/C-Spine: COMMON NORMALS: full ROM, supple, no meningeal signs, no JVD and Thyroid normal THYROID: Thyroid normal Chest: COMMONS NORMALS: normal inspection of the chest and normal palpation of entire chest wall Resp: COMMON NORMALS: normal respiratory effort, No retractions, No use of accessory muscles and clear to auscultation bilaterally AUSCULTATION: clear to auscultation bilaterally Cardio: COMMON NORMALS: no JVD, regular rate, regular rhythm, S1 normal heart sound present, S2 normal heart sound present, No gallops present (Cardio), No clicks present (Cardio), No murmurs present (Cardio) and No rub (Cardio) R ATE: regular rate RHYTHM: regular rhythm HEART SOUNDS: S1 normal heart sound present and S2 normal heart sound present GI: COMMON NORMALS: Normal to inspection, nondistended, normoactive bowel sounds present, Soft to palpation, non-tender and no masses PALPATION: Yes Soft to palpation Neuro: COMMON NORMALS: patient oriented x3 SENSORIUM/ORIENTATION: Yes alert MENINGEAL SIGNS: Yes no meningeal signs Course 2 Vital Signs: Vital signs: Vital Signs Temperature 97.6 F 09/22/23 11:22 Pulse Rate 78 09/22/23 11:56 Respiratory Rate 16 09/22/23 11:22 Blood Pressure 127/78 09/22/23 11:56 Pulse Oximetry 100 09/22/23 11:56 Oxygen Delivery Me thod Room Air 09/22/23 11:22 MDM - Headache Medical Decision Making Patient had lab work included CBC CMP ESR CRP and CTs of the head and cervical spine everything was essentially benign or showed no acute abnormalities. Patient was given 1 L normal saline, 10 mg dexamethasone and 30 mg Toradol, patient does not seen a neurologist in her past. We will consult case management to see about getting patient to a neurologist to help resolve this pressure in her occipital region. Differential Diagnosis Likely headache and sinusitis; Unlikely migraine, tension headache, subarachnoid hemorrhage, meningitis or postconcussion syndrome Medical Records I reviewed the patient's medical records. Lab Data I reviewed the patient's lab results. 09/22/23 11:45 09/22/23 11:[address] 09/22/23 11:43 IMPRESSION: No acute intracranial hemorrhage or mass effect. Cervical Spine CT 09/22/23 11:48 IMPRESSION: 1. No acute abnormality of the cervical spine is identified. 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 3. Chronic degenerative disc disease. Laboratory Results WBC 8.53 10^3/uL (3.29-11.43) 09/22/23 11:45 RBC 5.41 10^6/uL (3.85-5.65) 09/22/23 11:45 Hgb 15.40 g/dL (11.27-16.99) 09/22/23 11:45 Hct 45.2 % (36-47) 09/22/23 11:45 MCV 83.5 fl (85-98) L 09/22/23 11:45 MCH 28.5 pg (27-33) 09/22/23 11:45 MCHC 34.1 g/dL (30-55) 09/22/23 11:45 RDW 12.4 % (12.1-15.1) 09/22/23 11:45 Plt Count 245 10^3/cmm (157-399) 09/22/23 11:45 MPV 11.1 fL (7.4-10.4) H 09/22/23 11:45 Neut % (Auto) 53.4 % 09/22/23 11:45 Lymph % (Auto) 34.8 % 09/22/23 11:45 [place] % (Auto) 8.2 % 09/22/23 11:45 Eos % (Auto) 2.9 % 09/22/23 11:45 Baso % (Auto) 0.6 % 09/22/23 11:45 Neut # (Auto) 4.55 10^3/uL (1.8-7.7) 09/22/23 11:45 Lymph # (Auto) 3.0 10^3/uL (0.8-4.8) 09/22/23 11:45 [place] # (Auto) 0.7 10^3/uL (0.2-0.9) 09/22/23 11:45 Eos # (Auto) 0.3 10^3/uL (0.0-0.8) 09/22/23 11:45 Baso # (Auto) 0.1 10^3/uL (0.0-0.1) 09/22/23 11:45 Nucleated RBC % (auto) 0 % 09/22/23 11:45 Nucleated RBCs # 0.0 /100WBC 09/22/23 11:45 ESR 10 mm/hr (0-15) 09/22/23 11:45 Sodium 136 mmol/L (136-145) 09/22/23 11:45 Potassium 3.9 mmol/L (3.5-5.1) 09/22/23 11:45 Chloride 103 mmol/L (98-107) 09/22/23 11:45 Carbon Dioxide 22 mmol/L (22-29) 09/22/23 11:45 Anion Gap 14.9 (5-19) 09/22/23 11:45 BUN 13 mg/dL (6-20) 09/22/23 11:45 Creatinine 0.6 mg/dL (0.5-0.9) 09/22/23 11:45 GFR Calculation 115.9 mL/min (90-130) 09/22/23 11:45 Glucose 112 mg/dL (65-115) 09/22/23 11:45 Calculated Osmolality 283 mOsm/kg (285-295) L 09/22/23 11:45 Calcium 9.2 mg/dL (8.5-10.5) 09/22/23 11:45 Magnesium 1.8 mg/dL (1.7-2.3) 09/22/23 11:45 Total Bilirubin 0.4 mg/dL (0.15-1.2) 09/22/23 11:45 AST 27 U/L (0-32) 09/22/23 11:45 ALT 35 U/L (0-33) H 09/22/23 11:45 Alkaline Phosphatase 67 U/L (35-105) 09/22/23 11:45 C-Reactive Protein 3.0 mg/L (0.0-4.9) 09/22/23 11:45 Total Protein 7.0 g/dL (6.6-8.7) 09/22/23 11:45 Albumin 4.0 g/dL (3.5-5.2) 09/22/23 11:45 Globulin 3.0 g/dL (1.3-4.6) 09/22/23 11:45 All radiology interpretation(s) finalized by discharge Discharge Plan Discharge Patient Disposition: Home Clinical Impression: Headache Qualifiers: Headache type: unspecified Headache chronicity pattern: acute headache I ntractability: not intractable Qualified Code(s): R51.9 - Headache, unspecified Condition: Stable Prescriptions: No Action lisinopril 10 mg tablet 10 mg PO DAILY@2030 norethindrone (contraceptive) 0.35 mg tablet 0.35 mg PO DAILY@2030 Discharge Orders: Discharge ED (Routine); Ordered 09/22/23 Ordered By: Mandeep Kulkarni Referrals: Ankita West DO [Primary Care Provider] - Patient Instructions: Acute Headache (ED) Activity Restrictions/Additional Instructions: He had been referred to case management to help get an appointment with a neurologist to help figure out the pressures in the back your head. If you have not heard from them by 2-3 business days please feel free to give us call back. Coding Level of Care Code ED Sales Technician for Radha Stokes
--- NOTE | 2023-09-22 11:48 | CTR_ITS ---
PROCEDURE INFORMATION: Exam: CT Cervical Spine Without Contrast Exam date and time: 09/22/2023 12:02 PM Age: 33 years old Clinical indication: Pain; Dizziness; Headache, vertigo, syncope. Occipital pain, pressure, headache TECHNIQUE: Imaging protocol: Computed tomography of the cervical spine without contrast. Radiation optimization: All CT scans at this facility use at least one of these dose optimization techniques: automated exposure control; mA and/or kV adjustment per patient size (includes targeted exams where dose is matched to clinical indication); or iterative reconstruction. COMPARISON: CT angio headneck* [id number] 08/03/2022 3:33 AM RADIATION DOSE METRICS: Total DLP (mGy-cm): 626.3 FINDINGS: Bones/joints: No fracture or other acute osseous abnormality of the cervical spine is identified. 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 Mild chronic multilevel cervical degenerative disc disease is present. There is a small posterior central subligamentous protrusion at C2-C3. Mild broad posterior disc osteophyte complex at C4-C5. Lungs: No acute abnormality seen in the imaged portions of the lung apices. Soft tissues: No obvious acute abnormality detected. CT/CT cervical spin wo con* [id number] IMPRESSION: 1. No acute abnormality of the cervical spine is identified. 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 3. Chronic degenerative disc disease.
[2023-09-22 11:56] VITALS: BP 127/78; PULSE 78; O2SAT 100
[2023-09-22 11:58] LABS: Basophils # 0.1 10^3/uL (0.0-0.1); Basophils % 0.6 %; Eosinophils # 0.3 10^3/uL (0.0-0.8); Eosinophils % 2.9 %; Hematocrit 45.2 % (36-47); Lymphocytes % 34.8 %; Mean Corpuscular HGB Conc 34.1 g/dL (30-55); Mean Corpuscular Hemoglobin 28.5 pg (27-33); Mean Corpuscular Volume 83.5 fl (85-98); Mean Platelet Volume 11.1 fL (7.4-10.4); Monocytes # 0.7 10^3/uL (0.2-0.9); Monocytes % 8.2 %; Neutrophils # 4.55 10^3/uL (1.8-7.7); Neutrophils % 53.4 %; Nucleated Red Blood Cells % 0 %; Platelet Count 245 10^3/cmm (157-399); Red Blood Count 5.41 10^6/uL (3.85-5.65); Red Cell Distribution Width 12.4 % (12.1-15.1); White Blood Count 8.53 10^3/uL (3.29-11.43)
[2023-09-22 12:06] LABS: Erythrocyte Sedimentation Rate 10 mm/hr (0-15)
[2023-09-22] MEDS: sodium chloride 0.9% 1,000 ML 999 ML IV (12:12)
[2023-09-22 12:16] LABS: Alanine Aminotransferase 35 U/L (0-33); Alkaline Phosphatase 67 U/L (35-105); Anion Gap 14.9 (5-19); Aspartate Amino Transferase 27 U/L (0-32); Blood Urea Nitrogen 13 mg/dL (6-20); Calcium 9.2 mg/dL (8.5-10.5); Carbon Dioxide 22 mmol/L (22-29); Chloride 103 mmol/L (98-107); Glomerular Filtration Rate 115.9 mL/min (90-130); Glucose 112 mg/dL (65-115); Magnesium 1.8 mg/dL (1.7-2.3); Osmolality Calculated 283 mOsm/kg (285-295); Potassium 3.9 mmol/L (3.5-5.1); Sodium 136 mmol/L (136-145); Total Bilirubin 0.4 mg/dL (0.15-1.2)
[2023-09-22] MEDS: ketorolac 30 mg/mL INJ IVP (12:34)
[2023-09-22] MEDS: dexamethasone 10 mg/mL INJ IVP (12:34)
--- NOTE | 2023-09-23 08:03 | DCPLANNER ---
Message was sent to ortho on 09/23/23 at 0804. Clinic to contact patient
== END 2023-09-22 13:27 | disposition home or self-care (01) ==
PROVIDERS: Emergency Provider Emergency Medicine; PCP Family Medicine
DX: R51.9 Headache, unspecified (principal); I10 Essential (primary) hypertension; Z72.0 Tobacco use
CPT/HCPCS: 70450; 72125; 80053; 83735; 85025; 85651; 86140; 96361; 96374; 96375; 99285; J1100; J1885; J7030

== ENCOUNTER 2023-11-26 10:30 | Outpatient (CLI) | payer BC, MEDICAID, SELFPAY ==
--- NOTE | 2023-11-26 11:00 | MM_ITS ---
WS: [id number] DIAGNOSTIC BILATERAL DIGITAL BREAST TOMOSYNTHESIS MAMMOGRAPHY WITH CAD LEFT breast ultrasound, limited HISTORY: N64.4 - Mastodynia, bilateral breast surgery for cyst removal since 08/14/2022 COMPARISON: 08/14/2022 and 05/06/2023 TECHNIQUE: Bilateral craniocaudad, mediolateral oblique, and mediolateral views are submitted with to mosynthesis and SM. Spot compression bilateral MLO and CC projections. Computer aided detection utili zed. Breast composition: The breasts are heterogeneously dense, which may obscure small masses. Mild volum e loss in the anterior aspect of each breast from the prior surgery. No masses. There is mild distort ion of the fibroglandular tissue from the surgery. In the area of pain along the anterior LEFT breast no abnormality is identified. LEFT breast ultrasound, limited. Ultrasound performed in the LEFT retroareolar location. There is no mass or cyst identified. No absce ss. IMPRESSION: MM/[place] [id number] BI-RADS: 2-Benign FOLLOW UP: 1 Year Follow-up
--- NOTE | 2023-11-26 11:30 | US_ITS ---
WS: [id number] DIAGNOSTIC BILATERAL DIGITAL BREAST TOMOSYNTHESIS MAMMOGRAPHY WITH CAD LEFT breast ultrasound, limited HISTORY: N64.4 - Mastodynia, bilateral breast surgery for cyst removal since 08/14/2022 COMPARISON: 08/14/2022 and 05/06/2023 TECHNIQUE: Bilateral craniocaudad, mediolateral oblique, and mediolateral views are submitted with to mosynthesis and SM. Spot compression bilateral MLO and CC projections. Computer aided detection utili zed. Breast composition: The breasts are heterogeneously dense, which may obscure small masses. Mild volum e loss in the anterior aspect of each breast from the prior surgery. No masses. There is mild distort ion of the fibroglandular tissue from the surgery. In the area of pain along the anterior LEFT breast no abnormality is identified. LEFT breast ultrasound, limited. Ultrasound performed in the LEFT retroareolar location. There is no mass or cyst identified. No absce ss. IMPRESSION: US/US breast LT limited* [id number] BI-RADS: 2-Benign FOLLOW UP: 1 Year Follow-up
== END 2023-11-26 10:31 | disposition home or self-care (01) ==
LOC: RAD 10:31
PROVIDERS: PCP Family Medicine; Visit Provider Surgery
DX: N64.4 Mastodynia (principal); N63.10 Unspecified lump in the right breast, unspecified quadrant; N63.20 Unspecified lump in the left breast, unspecified quadrant
CPT/HCPCS: 76642; 77062; G0279

== ENCOUNTER 2025-02-05 08:16 | Outpatient (CLI) | payer OTHER, SELFPAY ==
--- NOTE | 2025-02-05 08:20 | MM_ITS ---
WS: [id number] BILATERAL 3D TOMOSYNTHESIS DIGITAL SCREENING MAMMOGRAPHY WITH CAD CLINICAL INFORMATION: SCREENING HISTORY: Screening mammogram. No current complaints. COMPARISON: 2023 TECHNIQUE: Bilateral CC and MLO views. FINDINGS: The breasts are composed of heterogeneous fibroglandular density tissue, which can limit the detection of small underlying mass lesions. Increasing partially obscured nodular density outer RIGHT breast measuring 3.7 cm. Recommend further evaluation with spot compression views and ultrasound. Unremarkable LEFT breast. MM/MM [facility] tomosynthesis [id number] IMPRESSION: DENSITY: The breasts are heterogeneously dense, which may obscure small masses. BI-RADS: 0 - Incomplete: Need additional imaging evaluation FOLLOW UP: Need Additional Imaging Recommend further evaluation with RIGHT breast diagnostic mammography and ultra sound.
== END 2025-02-05 08:17 | disposition home or self-care (01) ==
LOC: RAD 08:17
PROVIDERS: PCP Family Medicine; Visit Provider Family Medicine
DX: Z12.31 Encounter for screening mammogram for malignant neoplasm of breast (principal); R92.333 Mammographic heterogeneous density, bilateral breasts; N63.13 Unspecified lump in the right breast, lower outer quadrant
CPT/HCPCS: 77063; 77067

== ENCOUNTER 2025-02-10 15:20 | Emergency (ER) | payer OTHER, SELFPAY ==
[2025-02-10 15:23] VITALS: BP 142/111; PULSE 97; RESP 16; TEMP 36.9; O2SAT 96
--- NOTE | 2025-02-10 16:29 | XRR_ITS ---
PROCEDURE INFORMATION: Exam: XR Left Forearm Exam date and time: 02/10/2025 4:42 PM Age: 34 years old Clinical indication: Injury or trauma; Other: Not specified; Blunt trauma (contusions or hematomas); Arm, lower; Left TECHNIQUE: Imaging protocol: Radiologic exam of the left forearm. Views: 2 views. COMPARISON: CR XR elbow LT min 3V* [id number] 02/10/2025 4:40 PM FINDINGS: Bones/joints: Normal. Soft tissues: Normal. XR/XR forearm LT 2V [id number] IMPRESSION: No acute findings.
--- NOTE | 2025-02-10 16:29 | XRR_ITS ---
PROCEDURE INFORMATION: Exam: XR Left Elbow Exam date and time: 02/10/2025 4:40 PM Age: 34 years old Clinical indication: Injury or trauma; Other: Not specified; Blunt trauma (contusions or hematomas); Elbow; Left TECHNIQUE: Imaging protocol: Radiologic exam of the left elbow. Views: 3 or more views. COMPARISON: [place] [id number] 02/10/2025 4:38 PM FINDINGS: Limitations: Study is somewhat limited due to positioning. Tubes, catheters and devices: Please correlate with clinical findings. Follow-up radiography after 7-10 days of immobilization suggested if there is clinical suspicion of fracture. Bones/joints: There is displacement of anterior and posterior fat pads which could represent occult fracture or intra-articular derangement. No definite fracture is demonstrated. Soft tissues: Normal. XR/XR elbow LT min 3V* [id number] IMPRESSION: Anterior and posterior fat pad displacement. No definite fracture however is identified.
--- NOTE | 2025-02-10 16:29 | XRR_ITS ---
PROCEDURE INFORMATION: Exam: XR Left Humerus Exam date and time: 02/10/2025 4:38 PM Age: 34 years old Clinical indication: Injury or trauma; Other: Not specified; Blunt trauma (contusions or hematomas); Arm, upper; Left TECHNIQUE: Imaging protocol: Radiologic exam of the left humerus. Views: 2 or more views. COMPARISON: No relevant prior studies available. FINDINGS: Bones/joints: Normal. Soft tissues: Normal. XR/[place] [id number] IMPRESSION: No acute findings.
[2025-02-10 17:22] VITALS: BP 159/97; PULSE 93; O2SAT 95
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
[2025-02-10] MEDS: HYDROcodone-acetaminophen 10-325 mg Tablet 1 TAB PO (18:22)
[2025-02-10] MEDS: ondansetron hcl ODT 4 mg Tab PO (18:22)
[2025-02-10 18:43] VITALS: BP 154/98; PULSE 77; O2SAT 99
== END 2025-02-10 18:48 | disposition home or self-care (01) ==
PROVIDERS: Emergency Provider Emergency Medicine; PCP Family Medicine
DX: S59.902A Unspecified injury of left elbow, initial encounter (principal); V28.09XA Other motorcycle driver injured in noncollision transport accident in nontraffic accident, initial encounter; I10 Essential (primary) hypertension; Z72.0 Tobacco use
CPT/HCPCS: 73060; 73080; 73090; 99283; J9999; Q0162

== ENCOUNTER → 2025-02-11 13:48 | Outpatient (BNVA) | payer OTHER, SELFPAY | PROVIDERS: PCP Family Medicine; Visit Provider Orthopaedic Surgery | DX: S59.909A Unspecified injury of unspecified elbow, initial encounter (principal); V29.99XA Rider (driver) (passenger) of other motorcycle injured in unspecified traffic accident, initial encounter | CPT/HCPCS: 73080 ==

== ENCOUNTER 2025-02-16 15:40 | Outpatient (CLI) | payer OTHER, SELFPAY ==
--- NOTE | 2025-02-16 08:41 | MR_ITS ---
WS: [id number] EXAMINATION: MR elbow LT wo con* [id number] ORDER DATE: 02/16/2025 8:48 AM HISTORY: ELBOW PAIN TECHNIQUE: Axial T1, axial T2 fat sat, coronal T1, coronal proton density fat sat, coronal STIR, sagittal proton density fat sat, and axial fat sat 3D performed. FINDINGS: Joint effusion with displacement of the anterior and posterior fat pads. Moderate size effusion. Diffuse edema involving the capitellum extending into the lateral condyle. Additional edema involving the lateral radial head with a small nondisplaced fracture. Osteochondral fracture involving the capitellum with associated fragment. Fragmentation of the capitellum laterally. Additional nondisplaced fracture lines extend into the distal humerus Trochlea appears normal. Normal coronoid process. Small amount of fluid and edema deep to the common extensor tendon sheath and annular ligament which appears intact. Distal triceps insertion appears intact. Normal biceps tendon insertion on the radial tuberosity. MR/MR elbow LT wo con* [id number] IMPRESSION: 1. Moderate joint effusion with displacement of the anterior and posterior fat pads. 2. Acute osteochondral fracture involving the capitellum with diffuse edema ex tending into the epicondyle. Small associated osteochondral fragment. 3. Fragmentation with small fracture lines involving the lateral aspect of the capitellum. 4. Nondisplaced fracture lines extend into the distal humerus 5. Small nondisplaced acute fracture involving the lateral aspect of the radia l head. 6. Fluid and edema deep to the common extensor tendon. 7. No other acute findings.
== END 2025-02-16 15:41 | disposition home or self-care (01) ==
LOC: RAD 15:41
PROVIDERS: PCP Family Medicine; Visit Provider Orthopaedic Surgery
DX: S52.125A Nondisplaced fracture of head of left radius, initial encounter for closed fracture (principal); S42.452A Displaced fracture of lateral condyle of left humerus, initial encounter for closed fracture; S42.402A Unspecified fracture of lower end of left humerus, initial encounter for closed fracture; X58.XXXA Exposure to other specified factors, initial encounter
CPT/HCPCS: 73221

== ENCOUNTER 2025-02-25 07:39 | Outpatient (CLI) | payer OTHER, SELFPAY ==
--- NOTE | 2025-02-25 07:49 | MM_ITS ---
WS: [id number] RIGHT 3D TOMOSYNTHESIS DIGITAL MAMMOGRAPHY WITH CAD CLINICAL INFORMATION: R ABNORMAL MAMMOGRAM HISTORY: Additional views COMPARISON: 02/05/2025 TECHNIQUE: 3 views of the right breast were obtained. FINDINGS: The right breast is composed of heterogeneous fibroglandular density tissue, which can limit the detection of small underlying mass lesions. Previously described partially obscured nodular density outer RIGHT breast partially compresses out and more distinct today after compression and measures 1.8 cm. Additional smaller ovoid density central RIGHT breast posteriorly measuring 1.3 cm. Ultrasound is pending. ULTRASOUND BREAST RIGHT TECHNIQUE: Ultrasound right breast focused area of concern. CLINICAL INFORMATION: R ABNORMAL MAMMOGRAM FINDINGS: Ultrasound upper outer RIGHT breast and 12-6. Simple cyst at the 12 o'clock position measuring 1.3 x 1.5 x 0.8 cm. At the 9 o'clock position 5 cm from the nipple is an additional simple cyst measuring 1.5 x 1.9 x 1.0 cm. Findings are benign. Recommend return to annual screening mammography MM/MM diag RT tomosynthesis [id number] IMPRESSION: DENSITY: The breasts are heterogeneously dense, which may obscure small masses. BI-RADS: 2 - Benign FOLLOW UP: 1 Year Follow-up Recommend return to annual screening mammography.
== END 2025-02-25 07:40 | disposition home or self-care (01) ==
LOC: RAD 07:39
PROVIDERS: PCP Family Medicine; Visit Provider Family Medicine
DX: N60.01 Solitary cyst of right breast (principal); R92.333 Mammographic heterogeneous density, bilateral breasts
CPT/HCPCS: 76642; 77061; G0279

== ENCOUNTER 2025-02-25 11:13 | Outpatient (CLI) | payer OTHER, SELFPAY | END 2025-02-25 11:14 | disposition home or self-care (01) | LOC: SPT 11:15 | PROVIDERS: PCP Family Medicine; Visit Provider Orthopaedic Surgery | DX: Z46.89 Encounter for fitting and adjustment of other specified devices (principal); S42.402D Unspecified fracture of lower end of left humerus, subsequent encounter for fracture with routine healing; X58.XXXD Exposure to other specified factors, subsequent encounter | CPT/HCPCS: L3761 ==

== ENCOUNTER → 2025-03-04 15:38 | Outpatient (BNVA) | payer OTHER, SELFPAY | PROVIDERS: PCP Family Medicine; Visit Provider Orthopaedic Surgery | DX: S42.402D Unspecified fracture of lower end of left humerus, subsequent encounter for fracture with routine healing (principal); X58.XXXD Exposure to other specified factors, subsequent encounter | CPT/HCPCS: 73080 ==

== ENCOUNTER → 2025-04-01 14:47 | Outpatient (BNVA) | payer OTHER, SELFPAY | PROVIDERS: PCP Family Medicine; Visit Provider Orthopaedic Surgery | DX: S42.402D Unspecified fracture of lower end of left humerus, subsequent encounter for fracture with routine healing (principal); X58.XXXD Exposure to other specified factors, subsequent encounter | CPT/HCPCS: 73080 ==

== ENCOUNTER → 2025-04-29 08:21 | Outpatient (BNVA) | payer OTHER, SELFPAY | PROVIDERS: PCP Family Medicine; Visit Provider Orthopaedic Surgery | DX: S42.402D Unspecified fracture of lower end of left humerus, subsequent encounter for fracture with routine healing (principal); X58.XXXD Exposure to other specified factors, subsequent encounter | CPT/HCPCS: 73080 ==